=== PATIENT | female | born 2005 | race Two or more races ===

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

== ENCOUNTER 2025-02-26 14:21 | Outpatient (REF) | payer MEDICAID, SELFPAY ==
--- OUTSIDE RECORDS SUMMARY | 2025-02-26 14:43 | XMS_ITS | Encounter Summary ---
Author Organization [facility] Address [address] [place] [address] [address] [place] [address] Care Team Providers Care Assembler Knife Name Role Phone Alma Donaldson NP Primary Care Provider Reason for Referral * Imaging (Urgent) - Pending Review Specialty Diagnoses / Procedures Referred By Contac t Referred To Contact Radiology Diagnoses Left lower quadrant pain Procedures US Pelvis Transvaginal Alma Donaldson NP [address] [place] [address] Phone: tel: fax: Referral ID Status Reason Start Date Expiration Date V isits Requested Visits Authorized [id number] Pending Review 02/26/2025 02/26/2026 1 1 * Imaging (Routine) - Pending Review Specialty Diagnoses / Procedures Referred By Contac t Referred To Contact Radiology Diagnoses Left lower quadrant pain Procedures Us Pelvis complete Alma Donaldson NP [address] [place] [address] Phone: tel: fax: Referral ID Status Reason Start Date Expiration Date V isits Requested Visits Authorized [id number] Pending Review 02/26/2025 02/26/2026 1 1 Encounter Details Date Type Department Care Team (Late st Contact Info) Description 02/26/2025 2:00 PM EDT Office Visit [facility] [address] [place] [address] Alma Donaldson NP [address] [place] [address] Nausea (Primary Dx); Left lower quadrant pain; Migraine without status migrainosus, not intractable, unspecified migraine type; Migraine with aura and without status migrainosus, not intractable Social History Tobacco Use Types Packs/Day Years Used Date Smoking Tobacco: Never Alcohol Use Standard Drinks/Week Comments Never 0 (1 standard drink = 0.6 oz pur e alcohol) Alcohol Answer Date Recorded Frequency of Alcohol Consumption Not on file 05/22/2024 Average Number of Drinks Not on file 024 Frequency of Binge Drinking Not on file 03/2024 Score 0 05/22/2024 Depression Answer Date Recorded Patient Health Questionnaire-9 Score 18 05/22/2024 Patient Health Questionnaire-9 Score 18 05/22/2024 Last PHQ-9: Questionnaire Data Not on file 0 05/22/2024 Housing Stability Answer Date Recorded What is your housing situation today? I do not have housing (Staying with others, in a hotel, in a assisted, living outside on the street, on a beach, in a car, or in a park 04/03/[address] you li ve. Do you have problems with any of the following? Pests such as bugs, ants, or mice;Water leaks 04/03/2024 Food Insecurity Answer Date Recorded Within the past 12 months, y ou worried that your food would run out before you got money to buy more: Never True 2023 Within the past 12 months,th e food you bought just didn't last and you didn't have enough money to get more: Sometimes True 04/03/2024 Transportation Answer Date Recorded In the past 12 months, has l ack of transportation kept you from medical appts, meetings, work or from getting things needed for daily living? I am not sure 04/03/2024 Utilities Answer Date Recorded In the past 12 months, has t he electric, gas, oil or water company threatened to shut off services in your home? I am not sure 04/03/2024 Depression Answer Date Recorded Patient Health Questionnaire-2 Score 4 05/22/2024 Comments No Sex and Gender Information Value Date Recorded Sex Assigned at Female 09/17/2022 10:32 AM EDT Legal Sex Female 10:32 AM EDT Gender Identity Female 09/17/2022 10:32 AM EDT Sexual Orientation Straight 04/30/2024 1: 39 PM EDT documented as of this encounter Last Filed Vital Signs Vital Sign Reading Time Taken Comments Blood Pressure 126/80 02/26/2025 1:57 PM EDT Pulse 97 02/26/2025 1:57 PM EDT Temperature 35.6 ??C (96.1 ??F) 02/26/2025 1:57 PM ED T Respiratory Rate 18 02/26/2025 1:57 PM EDT Oxygen Saturation 97% 02/26/2025 1:57 PM EDT Inhaled Oxygen Concentration - - Weight 83.2 kg (183 lb 6.4 oz) 02/26/2025 1:57 P M EDT Height 157.5 cm (5' 2 ) 02/26/2025 1:57 PM EDT Body Mass Index 33.54 02/26/2025 1:57 PM EDT documented in this encounter Progress Notes * Alma Donaldson, AG - 02/26/2025 2:00 PM EDT Subjective: Jasper Weaver is a 19 y.o. female who presents to the office for a sick visit. HPI Left lower quadrant pain, hx of ovarian cyst Both sides of lower abdomen were hurting yesterday now localized to lower abdomen Has a migraine currently, 2 days. Lmp- 02/13-02/17/25 no sexual activity since then Hx of constipation, does have miralax, but has not been taking last bm 2 days ago, is passing gas Does endorse cannibus usage , has never had this before from cannabis Patient Active Problem List Diagnosis Attention deficit hyperactivity disorder Chronic left-sided low back pain without sciatica Anxiety and depression Fibrous dysplasia of bone Mild intermittent asthma Acute left-sided thoracic back pain Non-seasonal allergic rhinitis Healthcare maintenance Allergies Anemia Fatigue due to exposure Dysmenorrhea Ingrown toenail of left foot Anxiety Panic attacks Abnormal x-ray Unprotected sex Lower abdominal pain Irritable bowel syndrome with both constipation and diarrhea Depressive disorder Nausea Exposure to communicable disease Unintentional weight loss COVID-19 Left lower quadrant pain Migraine with aura and without status migrainosus, not intractable Review of Systems Constitutional: Negative for activity change and appetite change. Respiratory: Negative for apnea and chest tightness. Cardiovascular: Negative for chest pain. Gastrointestinal: Positive for abdominal pain, constipation and nausea. Negative for vomiting. Genitourinary: Positive for pelvic pain. Negative for decreased urine volume, hematuria, vaginal bleeding and vaginal discharge. Neurological: Positive for headaches. Allergies Allergen Reactions Amoxicillin Hives Objective: Visit Vitals BP 126/80 (BP Location: Right arm, Patient Position: Sitting, BP Cuff Size: Adult) Pulse 97 Temp 96.1 ??F (35.6 ??C) (Temporal) Resp 18 Ht 5' 2 (1.575 m) Wt 183 lb 6.4 oz (83.2 kg) SpO2 97% BMI 33.54 kg/m?? OB Status Having periods Smoking Status Never BSA 1.91 m?? Physical Exam Constitutional: Appearance: She is obese. Cardiovascular: Rate and Rhythm: Regular rhythm. Heart sounds: Normal heart sounds. Pulmonary: Breath sounds: Normal breath sounds. Abdominal: Palpations: Abdomen is soft. There is no mass. Tenderness: There is abdominal tenderness. There is no guarding or rebound. Musculoskeletal: Cervical back: Neck supple. Neurological: Mental Status: She is alert. Assessment/Plan: Problem List Items Addressed This Visit Nausea - Primary Left lower quadrant pain Current Assessment & Plan Pt with left lower qudarant pain, Reassuring abdominal exam no rebound or guarding but does have some tenderness Baseline constipation, Encouraged miralax Beta hcg ordered (pt cannot provide urine) Ultrasound ordered for possible ovarian cyst, Pt and mother aware of second hand services and urgency of seeking care should pain increase Relevant Orders Us Pelvis complete US Pelvis Transvaginal hCG, Total, Quantitative Migraine with aura and without status migrainosus, not intractable Current Assessment & Plan Trial excedrin, pt endorses light sensitivity Relevant Medications ucvqnxa-eduiwghntsaec-eiypdxiy (Excedrin Migraine) 250-250-65 MG tablet Current Outpatient Medications Medication Sig Dispense Refill acetaminophen (Tylenol) 500 MG tablet Take 1 tablet (500 mg) by mouth every 6 (six) hours if neededfor mild pain. 60 tablet 0 albuterol (ProAir HFA) 108 (90 Base) MCG/ACT inhaler Inhale 2 puffs every 4 (four) hours if needed for wheezing. 18 g 2 aknrrqt-xyrgzfltmsgay-kxjzeamk (Excedrin Migraine) 250-250-65 MG tablet Take 1 tablet by mouth every 8 (eight) hours if needed for headaches for up to 2 days. 6 tablet 0 benzoyl peroxide (Benzac AC) 10 % external wash wash face with cleanser during showers cetirizine (ZyrTEC) 10 MG tablet Take 1 tablet (10 mg) by mouth Once per day. 30 tablet 2 famotidine (Pepcid) 20 MG tablet TAKE 1 TABLET BY MOUTH TWICE A DAY 180 tablet 0 fluticasone (Flonase) 50 MCG/ACT nasal spray ADMINISTER 1 SPRAY INTO EACH NOSTRIL ONCE PER DAY. SHAKE GENTLY. BEFORE FIRST USE, PRIME PUMP. AFTER USE, CLEAN TIP AND REPLACE CAP. 32 mL 1 Multiple Vitamin (multivitamin) tablet 1 tab daily (Patient not taking: Reported on 05/29/2024) 90 tablet 3 omeprazole OTC (PriLOSEC OTC) 20 MG EC tablet 1 tab every morning till pain resolved, then prn. . Do not crush, chew, or split. (Patient not taking: Reported on 05/29/2024) 90 tablet 0 traZODone (Desyrel) 100 MG tablet Take by mouth at bedtime. No current facility-administered medications for this visit. documented in this encounter Miscellaneous Notes * Assessment & Plan Note - Alma Donaldson NP - 02/26/2025 2:23 PM EDTAssociated Problem(s): Migraine with aura and without status migrainosus, not intractable Trial excedrin, pt endorses light sensitivity * Assessment & Plan Note - Alma Donaldson NP - 02/26/2025 2:19 PM EDTAssociated Problem(s): Left lower quadrant pain Pt with left lower qudarant pain, Reassuring abdominal exam no rebound or guarding but does have some tenderness Baseline constipation, Encouraged miralax Beta hcg ordered (pt cannot provide urine) Ultrasound ordered for possible ovarian cyst, Pt and mother aware of second hand services and urgency of seeking care should pain increase documented in this encounter Plan of Treatment Upcoming Encounters Date Type Department Care Team (Late st Contact Info) Description 03/23/2025 11:30 AM EDT Office Visit [facility] [address] [place] [address] Alma Donaldson NP [address] [place] [address] Scheduled Orders Name Type Priority Associated Diagnoses Orde r Schedule Us Pelvis complete Imaging Routine Left lower quadrant pain Expected: 02/26/2025, Expires: 02/26/2026 US Pelvis Transvaginal Imaging Urgent Left lower quadrant pain Expected: 02/26/2025, Expires: 02/26/2026 hCG, Total, Quantitative Lab Routine Left lower quadrant pain Expected: 02/26/2025 (Approximate), Expires: 02/26/2026 documented as of this encounter Visit Diagnoses Diagnosis Nausea- Primary Nausea alone Left lower quadrant pain Abdominal pain, left lower quadrant Migraine without status migrainosus, not intractable, unspecified migraine type Migraine with aura and without status migrainosus, not intractable documented in this encounter Additional Health Concerns Assessment Noted Time PHQ-9 Depression Total Score: 18 024 10:42 AM EDT documented as of this encounter Care Teams Assembler Knife Relationship Specialty Start Date End Date Alma Donaldson NP [address] [place] [address] PCP - General Family Medicine 02/27/24 documented as of this encounter
--- OUTSIDE RECORDS SUMMARY | 2025-02-26 14:43 | XMS_ITS ---
Author Organization [facility] Address [address] [place], [place] [id number] Care Team Providers Care Slat Twister Name Role Phone [facility] Primary Care Provider Un available Dixie Ellsworth Unavailable REASON FOR VISIT Housing Encounters Encounter Location Date Provider Diagnosis [facility] [address] [place] [phone] 11/09/2024 Dixie Ellsworth Plan Of Treatment No Information Progress Notes * Jasper SUN DDOB:07/2006 (19 yo F)Acc No.[id number]:11/09/2024 Case Management Patient:?Jasper SUN Provider:?Dixie Ellsworth :2005???Age:18 Y???Sex:Female D ate:11/09/2024 Address:[address] [place] [address] [place], [place] [phone] Pcp:[facility] Subjective: * Chief Complaints: * ???1. Housing. * Medical History:? Objective: Assessment: Plan: * Treatment: * Images: Billing Information: * Visit Code:? * Procedure Codes:? Care Plan Details* * Electronic signature of Hiren Ellsworth on 02/26/2025 at 02:43 PM EDT Sign off status: Pending * Provider:Kerri Ellsworth Date:? Generated for Hay collins/Concepcion/eTransmitting on:?02/26/2025 02:43 PM EDT
--- OUTSIDE RECORDS SUMMARY | 2025-02-26 14:43 | XMS_ITS ---
Author Name [facility] Organization Unknown History of Medication Use Medication Directions Dispensed Refills Start Date End Date Stat us famotidine (PEPCID) 10 MG tablet Take by mouth daily act tia Problems Problem Status Onset Date Problem Type Date of Resolution Source Epigastric pain active EncounterDiagnosisAct [facility] Constipation, unspecified constipation type active EncounterDiagnosisAct C [facility] Encounters Encounter Type Encounter Reason Primary Diagnosis Location Date Ambulatory [facility] 06/04/2022 Care Team Organization Name Specialty Phone Email Start Date End Da te [facility] Hailey Molina Primary Care 06/04/2022
--- OUTSIDE RECORDS SUMMARY | 2025-02-26 14:44 | XMS_ITS ---
Author Organization [facility] Address [address], [place] [id number] Care Team Providers Care Utility Bill Collection Clerk Name Role Phone [facility] Primary Care Provider Un available Dixie Ellsworth Unavailable REASON FOR VISIT make appt Encounters Encounter Location Date Provider Diagnosis [facility] [address] [place] [phone] 12/08/2024 Dixie Ellsworth Plan Of Treatment No Information Progress Notes * Jasper SUN DDOB:07/2006 (18 yo F)Acc No.[id number]:12/08/2024 Case Management Patient:?Jasper SUN Provider:?Dixie Ellsworth :2005???Age:18 Y???Sex:Female D ate:12/08/2024 Address:[address] [place], [place] [phone] Pcp:[facility] Subjective: * Chief Complaints: * ???1. Make appt. * HPI: ???Social Service:?Date of encounter?12/08/2024.?Referral Source?walk-in, self.?Interpretation for medical provider?Make Appt.?Advocacy?none.?Follow-up Required:?yes.?Pt comprehension?Pt agrees with plan, Patient understood process and assisted with process.?Action taken (old)?form completion, Items given to client, item obtained, Letter given to patient after photo copy made.? * Medical History:? Objective: * Vitals:? Assessment: Plan: * Treatment: * Images: Billing Information: * Visit Code:? * Procedure Codes:? Care Plan Details* * Sign off status: Completed true * Provider:?Dixie Ellsworth Date:? Generated for Hay collins/Concepcion/Brandysmloida on:?02/26/2025 02:43 PM EDT History and Physical Notes * HPI (History of Present Illness) Category Sub-Category Detail Notes Social Service Referral Source walk-in, self Interpretation for medical provider Make Appt Action taken (old) form completion, Ite ms given to client, item obtained, Letter given to patient after photo copy made Advocacy none Follow-up Required: yes Pt comprehension Pt agrees with plan, Patient understood process and assisted with process Date of encounter 12/08/2024
--- OUTSIDE RECORDS SUMMARY | 2025-02-26 14:44 | XMS_ITS | Clinical Summary ---
Author Organization [facility] Address [address] [place] [address] Care Team Providers Care Corrections Caseworker Name Role Phone Hailey Molina MD Primary Care Provider [phone] Source Comments Please note that some or all of the patient's information could have additional privacy protections. State laws allow health care providers to render certain types of treatment to minors without parental consent. Please do not assume that this information can be shared solely by obtaining just the consent of the patient's parent/guardian. Please determine if all or part of the patient's care was rendered without parent/guardian involvement. And, if so, obtain the minor's consent prior to disclosure.[facility]'s Allergies Active Allergy Reactions Criticality Noted Date Comments Amoxicillin 06/04/2022 Medications famotidine (PEPCID) 10 MG tablet Take by mouth daily Active cloNIDine HCL (CATAPRES) 0.3 MG tablet Take by mouth 2 (two) times daily Active traZODone (DESYREL) 100 MG tablet Take by mouth nightly Active polyethylene glycol (MIRALAX) 17 gram/dose powderIndications :Constipation, unspecified constipation type Mix 16 capfuls in 64 oz gatorade drink over 4 to 6 hours followed by 1 capful twice daily 595 g 3 2 Active Active Problems No known active problems Family History Medical History Relation Name Comments No Known Problems Father No Known Problems Mother Relation Name Status Comments Father Mother Social History Tobacco Use Types Packs/Day Years Used Date Smoking Tobacco: Never Smokeless Tobacco: Never Other Needs Answer Date Recorded Anything else about your child you'd like help w ith? Not on file 08/02/2023 Share good news about positive changes: Not on f ile 08/02/2023 Comments No Sex and Gender Information Value Date Recorded Sex Assigned at Not on file Legal Sex Female 9:55 AM EDT Gender Identity Not on file Sexual Orientation Not on file Last Filed Vital Signs Vital Sign Reading Time Taken Comments Blood Pressure 106/69 06/04/2022 9:37 AM EDT Pulse 89 06/04/2022 9:37 AM EDT Temperature - - Respiratory Rate - - Oxygen Saturation - - Inhaled Oxygen Concentration - - Weight 79.7 kg (175 lb 11.3 oz) 06/04/2022 9:37 AM EDT Height 157.2 cm (5' 1.89 ) 06/04/2022 9:37 AM ED T Body Mass Index 32.25 06/04/2022 9:37 AM EDT Body Mass Index Percentile 96.77% 06/04/2022 9:3 7 AM EDT Growth Chart: CDC (Girls, 2- 20 Years) Plan of Treatment Health Maintenance Due Date Last Done Comments DTaP/TDAP/TD VACCINES (1 - Tdap) 2012 ADOLESCENT HIV SCREENING 2018 COVID-19 Vaccine (2023-2 5 season) 2024 INFLUENZA (#1) 2024 NIRSEVIMAB VACCINES UNDER 8 MONTHS Aged Out No longer eligible based on patient's age to complete this topic Insurance [facility] MEDICAID Care Teams Corrections Caseworker Relationship Specialty Start Date End Date Hailey Molina MD [address] [place] [phone] PCP - General General Pediatrics 04/17/22
--- OUTSIDE RECORDS SUMMARY | 2025-02-26 14:44 | XMS_ITS | Encounter Summary ---
Author Organization [employer] Address [address] [place] [address] [address] [place] [address] Care Team Providers Care Core Microarchitect Name Role Phone Alma Donaldson NP Primary Care Provider [phone] Encounter Details Date Type Department Care Team (Late st Contact Info) Description 04/10/2024 Orders Only [facility] [address] [place] [address] Ivet Li MD [address] [place] [address] Community acquired pneumonia, unspecified laterality (Primary Dx) Social History Tobacco Use Types Packs/Day Years Used Date Smoking Tobacco: Never Alcohol Use Standard Drinks/Week Comments Never 0 (1 standard drink = 0.6 oz pur e alcohol) Depression Answer Date Recorded Patient Health Questionnaire-9 Score 21 04/03/2024 Patient Health Questionnaire-9 Score 21 04/03/2024 Last PHQ-9: Questionnaire Data Not on file 0 04/03/2024 Housing Stability Answer Date Recorded What is your housing situation today? I do not have housing (Staying with others, in a hotel, in a custodial, living outside on the street, on a [...] Answer Date Recorded Patient Health Questionnaire-2 Score 5 04/03/2024 Comments Unknown Sex and Gender Information Value Date Recorded Sex Assigned at Female 09/17/2022 10:32 AM EDT Legal Sex Female 10:32 AM EDT Gender Identity Female 09/17/2022 10:32 AM EDT Sexual Orientation Straight 04/30/2024 1: 39 PM EDT documented as of this encounter Plan of Treatment Upcoming Encounters Date Type Department Care Team (Late st Contact Info) Description 03/23/2025 11:30 AM EDT Office Visit [facility] [address] [place], [place] [phone] Alma Donaldson NP [address] [place] [phone] documented as of this encounter Procedures Procedure Name Priority Date/Time Associated Diagnosis Comments URINALYSIS, COMPLETE, WITH REFLEX TO CULTURE Routine 09/03/2024 2:51 AM EDT Community acquired pneumonia, unspecified laterality CBC WITH AUTO DIFFERENTIAL Routine 09/03/2024 12:43 AM EDT Community acquired pneumonia, unspecified laterality HCG, TOTAL, QN Routine 09/03/2024 12:43 AM EDT Community acquired pneumonia, unspecified laterality COMPREHENSIVE METABOLIC PANEL Routine 09/03/2024 12:43 AM EDT Community acquired pneumonia, unspecified laterality documented in this encounter Results * Urinalysis, Complete, with Reflex to Culture (09/03/2024 2:51 AM EDT) Color Urine Yellow [facility] Appearance Urine Clear [facility] PH 6.5 5.0 - 9.0 [facility] Glucose Urine UA Negative Negative mg/dL [facility] Urine Blood Negative Negative [facility] Specific [place] - Urine <=1.005 1.005 - 1.025 [facility] Urine Protein Negative Neg-Trace mg/dL [facility] Urine Ketones Negative Negative mg/dL [facility] Nitrite Urine Negative Negative [facility] Leukocyte Esterase Urine Negative Negative [facility] RBC Urine 0-2 0 - 2 /HPF [facility] Urine WBC 0-5 0 - 5 /HPF [facility] Urine Squamous Epithelial Cell 0-2 0 - 2 /HPF [facility] Urine Bacteria None Seen None Seen [facility] Hyaline Casts, Urine 0-2 0 - 2 /LPF [facility] 09/03/2024 2:51 AM EDT 09/03/2024 2:55 AM EDT Narrative [facility] - 09/03/2024 3:01 AM EDT Urine, Clean Catch us Generic External Data Provider LAB URINE ORDERAB LES Final Result Performing Organization Address City/State/[facility] Co de Phone Number [facility] [address] [place] [phone] * hCG, Total, Quantitative (09/03/2024 12:43 AM EDT) HCG Quantitative <2 mIU/mL [facility] Comment:Weeks post LMP Appro ximate hCG(Last Menstrual Period) Range (mIU/ml)3 - 4 weeks 9 - 1304 - 5 weeks 75 - 2,6005 - 6 weeks 850 - 20,8006 - 7 weeks 4000 - 100,2007 - 12 weeks 11,500 - 289,83913 - 16 weeks 18,300 - 137,71582 - 29 weeks (2nd trimester) 1,400 - 53,90278 - 41 weeks (3rd trimester) 940 - 60,000The [place]ribe B- hCG assay is used for the early detection ofpregnancy; it cannot be used to diagnose any conditionunrelated to . If a B-hCG level is not supportedby the clinical evidence, results should be confirmed by analternative method (qualitative urine hCG, for example). 09/03/2024 12:4 3 AM EDT 09/03/2024 12:45 AM EDT us Generic External Data Provider LAB BLOOD ORDERAB LES Final Result [facility] [address] [place] [phone] * (ABNORMAL) Comprehensive Metabolic Panel (09/03/2024 12:43 AM EDT) Sodium 139 135 - 145 mmol/L [facility] Potassium 3.8 3.3 - 5.1 mmol/L [facility] Chloride 107 96 - 108 mmol/L [facility] Carbon Dioxide 25 22 - 29 mmol/L [facility] Anion Gap 11(L) 12 - 20 [facility] Urea Nitrogen (BUN) 12 9 - 16 mg/dL [facility] Creatinine, Serum 0.72 0.5 - 1.4 mg/dL [facility] Creatinine Clr Calc Pharmacy TNP [facility] Comment:Cannot be calculated ; patient is less than 19 years old. Estimated Glomerular Filt Rate >60 [facility] Comment:NOTE: For -Am erican individuals, multiply the result by 1.210.Chronic Kidney Disease: Estimated GFR < 60 mL/min/[id number] Kidney Disease: Estimated GFR < 15 mL/min/1.73m2 Glucose 89 60 - 115 mg/dL [facility] Calcium 9.8 8.4 - 10.2 mg/dL [facility] Bilirubin, Total 0.3 0.0 - 1.0 mg/dL [facility] Aspartate Amino Transferase 16 5 - 31 U/L [facility] Alanine Aminotransferase 13 0 - 31 U/L [facility] Total Protein 7.5 6.5 - 8.0 g/dL [facility] Albumin Level 4.5 3.5 - 5.0 g/dL [facility] Alkaline Phosphatase 92 39 - 117 U/L [facility] 09/03/2024 12:4 3 AM EDT 09/03/2024 12:45 AM EDT us Generic External Data Provider LAB BLOOD ORDERAB LES Final Result [facility] [address] [place] [phone] * (ABNORMAL) CBC auto differential (09/03/2024 12:43 AM EDT) White Blood Count 9.7 4.8 - 10.8 X10*3/uL [facility] Red Blood Count 4.40 4.20 - 5.50 X10*6/uL [facility] Hemoglobin 13.3 12.0 - 16.0 g/dl [facility] Hematocrit 38.4 37.0 - 47.0 % [facility] Mean Corpuscular Volume 87.3 80.0 - 98.0 fL [facility] Mean Corpuscular Hemoglobin 30.2 27.0 - 33.0 pg [facility] Mean Corpuscular HGB Conc 34.6 31.0 - 35.0 g/dl [facility] Red Cell Distribution Width 12.5 11.0 - 16.0 % [facility] Platelet Count 377 160 - 400 X10*3/uL [facility] Mean Platelet Volume 8.9(L) 9.4 - 12.3 fL [facility] Neutrophils Percent Auto 54.7 45 - 73 % [facility] Imm Gran Pct Auto 0.4 0.0 - 0.4 % [facility] Lymphocytes Percent Auto 36.7 20 - 40 % [facility] Monocytes Percent Auto 5.8 2 - 11 % [facility] Eosinophils Percent Auto 2.0 0 - 4 % [facility] Basophils Percent Auto 0.4 0 - 2 % [facility] NRBC Pct Auto 0.0 0.0 - 0.2 /100WBC [facility] Neutrophils Absolute Auto 5.3 2.0 - 8.3 x10*3/uL [facility] Imm Gran Abs Auto 0.04(H) 0.00 - 0.03 X10*3/uL [facility] Lymphocytes Absolute Auto 3.6 1.2 - 4.9 X10*3/uL [facility] Monocytes Absolute Auto 0.6 0.1 - 1.2 X10*3/uL [facility] Eosinophils Absolute Auto 0.2 0.0 - 0.4 X10*3/uL [facility] Basophils Absolute Auto 0.0 0.0 - 0.2 X10*3/uL [facility] NRBC Abs Auto 0.000 0.0 - 0.012 X10*3/uL [facility] 09/03/2024 12:4 3 AM EDT 09/03/2024 12:45 AM EDT us Generic External Data Provider LAB BLOOD ORDERAB LES Final Result [facility] [address] [place] [phone] documented in this encounter Visit Diagnoses Diagnosis Community acquired pneumonia, unspecified laterality- Primary documented in this encounter Additional Health Concerns Assessment Noted Time PHQ-9 Depression Total Score: 21 024 9:17 AM EDT documented as of this encounter Care Teams Core Microarchitect Relationship Specialty Start Date End Date Alma Donaldson NP [address] [place] [address] PCP - General Family Medicine 02/27/24 documented as of this encounter
--- OUTSIDE RECORDS SUMMARY | 2025-02-26 14:44 | XMS_ITS ---
Author Organization [facility] Address [address] [place], [place] [phone] Care Team Providers Care Supervisor Detasseling Crew Name Role Phone [facility] Primary Care Provider Un available Dixie Ellsworth Unavailable [phone] REASON FOR VISIT housing Encounters Encounter Location Date Provider Diagnosis [facility] [address] [place] [phone] 12/17/2024 Dixie Ellsworth Plan Of Treatment No Information Progress Notes * Jasper SUN DDOB:07/2006 (18 yo F)Acc No.[id number]:12/17/2024 Case Management Patient:?Jasper SUN Provider:?Dixie Ellsworth :2005???Age:18 Y???Sex:Female D ate:12/17/2024 Address:[address] [place] [address] [place], [place] [phone] Pcp[facility] Subjective: * Chief Complaints: * ???1. Housing. * HPI: ???Social Service:?Date of encounter?12/17/2024.?Referral Source?walk-in, self.?Interpretation for medical provider?housing.?Advocacy?none.?Follow-up Required:?yes.?Pt comprehension?Pt agrees with plan, Patient understood [...] * Provider:?Dixie Ellsworth Date:? Generated for Hay collins/Concepcion/Marce on:?02/26/2025 01:29 PM EDT History and Physical Notes * HPI (History of Present Illness) Category Sub-Category Detail Notes Social Service Referral Source walk-in, self Interpretation for medical provider hous ing Action taken (old) form completion, Ite ms given to client, item obtained, Letter given to patient after photo copy made Advocacy none Follow-up Required: yes Pt comprehension Pt agrees with plan, Patient understood process and assisted with process Date of encounter 12/17/2024
--- OUTSIDE RECORDS SUMMARY | 2025-02-26 14:44 | XMS_ITS | Clinical Summary ---
Author Organization [employer] Address [address] [place] [address] Care Team Providers Care Resident Associate Name Role Phone Alma Donaldson NP Primary Care Provider [phone] Allergies Active Allergy Reactions Criticality Noted Date Comments Amoxicillin Hives 08/30/2017 Medications * This document contains information received from the source organization and may not represent a complete record from that organization. benzoyl peroxide (Benzac AC) 10 % external wash wash face with cleanser during showers 05/17/20 22 Active traZODone (Desyrel) 100 MG tablet Take by mouth at bedtime. Active cetirizine (ZyrTEC) 10 MG tabletIndicatio ns:Allergy, initial encounter Take 1 tablet (10 mg) by mouth Once per day. 30 tablet 2 04/10/20 24 Active omeprazole OTC (PriLOSEC OTC) 20 MG EC tabletIndicatio ns:Epigastric abdominal pain 1 tab every morning till pain resolved, then prn. . Do not crush, chew, or split. 90 tablet 04/14/20 24 Active Additional Information Patient not taking.Reported on 05/29/2024 Multiple Vitamin (multivitamin) tabletIndicatio ns:Acute cough 1 tab daily 90 tablet 3 04/14/20 24 Active Additional Information Patient not taking.Reported on 05/29/2024 acetaminophen (Tylenol) 500 MG tablet Take 1 tablet (500 mg) by mouth every 6 (six) hours if needed for mild pain. 60 tablet 11/09/20 24 Active albuterol (ProAir HFA) 108 (90 Base) MCG/ACT inhalerIndicati ons:Mild intermittent asthma with acute exacerbation Inhale 2 puffs every 4 (four) hours if needed for wheezing. 18 g 2 11/09/20 24 Active famotidine (Pepcid) 20 MG tabletIndicatio ns:Nausea TAKE 1 TABLET BY MOUTH TWICE A DAY 180 tablet 11/30/19 25 Active fluticasone (Flonase) 50 MCG/ACT nasal sprayIndication s:COVID-19 ADMINISTER 1 SPRAY INTO EACH NOSTRIL ONCE PER DAY. SHAKE GENTLY. BEFORE FIRST USE, PRIME PUMP. AFTER USE, CLEAN TIP AND REPLACE CAP. 32 mL 1 02/05/20 25 026 Active aspirin-acetami nophen-caffeine (Excedrin Migraine) 250-250-65 MG tabletIndicatio ns:Migraine without status migrainosus, not intractable, unspecified migraine type Take 1 tablet by mouth every 8 (eight) hours if needed for headaches for up to 2 days. 6 tablet 02/27/20 25 025 Active fluticasone (Flonase) 50 MCG/ACT nasal sprayIndication s:COVID-19 Administer 1 spray into each nostril Once per day. Shake gently. Before first use, prime pump. After use, clean tip and replace cap. 16 g 2 11/09/20 24 025 Discontinued Active Problems Problem Noted Date Diagnosed Date Left lower quadrant pain 02/26/2025 Assessment & Plan (02/26/2025 2:19 PM EDT): Pt with left lower qudarant pain, Reassuring abdominal exam no rebound or guarding but does have some tenderness Baseline constipation, Encouraged miralax Beta hcg ordered (pt cannot provide urine) Ultrasound ordered for possible ovarian cyst, Pt and mother aware of chief telephone operator services and urgency of seeking care should pain increase Migraine with aura and witho ut status migrainosus, not intractable 02/26/2025 Assessment & Plan (02/26/2025 2:23 PM EDT): Trial sebdrin, pt endorses light sensitivity COVID-19 11/09/2024 Assessment & Plan (11/09/2024 4:09 PM EST): Rx Paxlovid x 5 days, [place] interactions module checked, no significant interactions found. Isolation until 11/11 and she/he will be out of work until then. Can be out of isolation, wearing a mask from 11/12 until 11/16, if sxs are resolved without other meds for at least 24h. Counseled to let close contacts within the past week, know about dx so they can be tested if needed. Rest (sleep at least 8 hours a night). Wash hands frequently Hydrate with plenty of water. Use saline nose drops Take Acetaminophen or Ibuprofen as Prn fever or discomfort Gargle with salt water and use throat sprays/lozenges prn Use heated, humidified air or take hot showers. If you have a fever, stay home and away from others (self isolation) until fever-free for 72 hours (temperature should be less than 100??F without medication). Nausea 09/01/2024 Assessment & Plan (09/01/2024 5:24 PM EDT): H pylori test ordered Will treat with famotidine and prn zofran, encouraged eating q 2-3 hours Exposure to communicable disease 09/01/2024 Assessment & Plan (09/01/2024 5:25 PM EDT): [employer]spot required for employment Unintentional weight loss 09/01/2024 Assessment & Plan (09/01/2024 5:25 PM EDT): Repeat tsh Irritable bowel syndrome wit h both constipation and diarrhea 07/15/2024 Assessment & Plan (07/15/2024 4:37 PM EDT): Reviewed fodmaps trial, referral to nutrition, if no response, referral to GI Abnormal x-ray 05/22/2024 Assessment & Plan (05/22/2024 12:59 PM EDT): Previous x-ray 03/19/24 Density seen anterior lower lung zone on lateral study may well represent an area of atelectasis or infiltrate. Attention to follow-up. Follow-up recommended after treatment to assess for resolution and establish baseline Repeat film ordered today Advised to trial albuterol inhaler for sensation of chest tightness Unprotected sex 05/22/2024 Assessment & Plan (05/22/2024 1:00 PM EDT): Contraception offered, pt declines, aware of plan b, gc/chl and test ordered today Lower abdominal pain 05/22/2024 Assessment & Plan (05/22/2024 1:03 PM EDT): Reassuring abdominal exam, encouraged fiber and hydration, if pain persists or worsens imaging warranted Healthcare maintenance 04/10/2024 Assessment & Plan (04/30/2024 3:20 PM EDT): Anticipatory guidance reviewed, sti screening ordered, Allergies 04/10/2024 Assessment & Plan (04/30/2024 3:21 PM EDT): Seasonal allergies topical nasal steroid and antihistamine rx Anemia 04/10/2024 Assessment & Plan (04/30/2024 3:20 PM EDT): Asymptomatic, trend labs Fatigue due to exposure 04/10/2024 Dysmenorrhea 04/10/2024 Assessment & Plan (09/01/2024 5:23 PM EDT): Pt interested in second opinion regarding etiology, Referral to [facility] at [facility], Ultrasound ordered as pt endorses sig llq pain Assessment & Plan (07/15/2024 4:38 PM EDT): Pt declines treatment options, will support with work note if dysmenorrhea is severe causing missed days Assessment & Plan (06/18/2024 12:43 PM EDT): -most recent pelvic US noted above -advised trial of ibuprofen 800 mg TID starting 2 days before onset of menses and continued for duration of menses -advised increased hydration and adequate food consumption -consider work up for PCOS as potential cause of symptoms -may benefit from contraception method for menstrual flow regulation -follow-up in 1 month at the completion of menses Assessment & Plan (05/22/2024 1:01 PM EDT): Found rx for ibuprofen beneficial hormonal options offered pt declines, gas plant specialist referral pending Assessment & Plan (04/30/2024 3:20 PM EDT): Pt opts to trial ibuprofen, referral to gas plant specialist for further work up /management per pt request Ingrown toenail of left foot 04/10/2024 Assessment & Plan (04/30/2024 3:20 PM EDT): Referral to podiatry Anxiety 04/10/2024 Assessment & Plan (05/25/2024 9:43 AM EDT): During [facility] Consult Jasper presenting with excessive worry/anxiety, difficulty controlling worry, restless/keyed up/On edge, easily fatigued, irritability, and sleep disturbance difficulty falling asleep and palpitations, sweating, sensation of shortness of breath/smothering, feeling of choking, Chest pain/discomfort, nausea/abdominal distress, dizzy/unsteady/light-headed/faint, Persistent concern/worry of panic attacks or their consequences; for a period of 6-12 mo, for all symptoms in the context of family issues, financial concern, and recent move. Jasper moved to [place] from [place] on 12/2023. She's currently living with her mom and identifies her housing and financial situation as triggers for sxs. Used to see a therapist and psychiatrist in [place]. Aware of importance of utilizing grounding techniques. During today's consult, Jasper was engaged with active and reflective listening. Reviewed and assessed risks, current triggers, protective factors using open-ended questions. We explored different grounding techniques that might be important to utilize when symptoms arise. Jasper will continue to see her therapist at [facility] and request to talk with clinician if needed during next medical visits. PLAN: (check all that apply) Continue with current services (defined as services in the past 12 months) . Pt reached out to [facility] / [facility] and has started OP individual therapy. Pt reports she has completed her second session with [facility]. Not interested in starting medication at the moment. Will continue to see therapist at [facility] and request to see clinician if needed during next medical visits. Assessment & Plan (05/22/2024 1:00 PM EDT): Pt continues to endorse anxiety, has established with therapy, ibh into assess today, SSRIs offered but pt declines at this time, aware of resources s/s to report sooner than scheduled follow up Assessment & Plan (04/17/2024 10:12 AM EDT): During [facility] Consult Jasper presenting with depressed mood, loss of interests/pleasure , psychomotor retardation, trouble concentrating, thoughts of worthlessness or guilt, fatigue/loss of energy, inappropriate guilt , hopelessness, worthlessness , difficulty concentrating, excessive worry/anxiety, difficulty controlling worry, restless/keyed up/On edge, easily fatigued, difficulty concentrating/Mind going blank , and irritability, and palpitations, sensation of shortness of breath/smothering, Chest pain/discomfort, nausea/abdominal distress, dizzy/unsteady/light- headed/faint, numbness/tingling, Persistent concern/worry of panic attacks or their consequences; for a period of 6-12 mo, for all symptoms in the context of family issues, financial concern, and recent move. Jasper moved to [place] from [place] on 12/2023. She's currently living with her mom and identifies her housing situation as a trigger for sxs. Used to see a therapist and psychiatrist in [place]. Aware of importance of utilizing grounding techniques and open to re-start medication to treat anxiety. PLAN: (check all that apply) Behavioral Health Integration Plan Self-referred to [facility] per patient's preferences. Information provided for N and [facility] intake. Panic attacks 04/10/2024 Assessment & Plan (05/25/2024 9:43 AM EDT): During [facility] Consult Jasper presenting with excessive worry/anxiety, difficulty controlling worry, restless/keyed up/On edge, easily fatigued, irritability, and sleep disturbance difficulty falling asleep and palpitations, sweating, sensation of shortness of breath/smothering, feeling of choking, Chest pain/discomfort, nausea/abdominal distress, dizzy/unsteady/light-headed/faint, Persistent concern/worry of panic attacks or their consequences; for a period of 6-12 mo, for all symptoms in the context of family issues, financial concern, and recent move. Jasper moved to [place] from [place] on 12/2023. She's currently living with her mom and identifies her housing and financial situation as triggers for sxs. Used to see a therapist and psychiatrist in [place]. Aware of importance of utilizing grounding techniques. During today's consult, Jasper was engaged with active and reflective listening. Reviewed and assessed risks, current triggers, protective factors using open-ended questions. We explored different grounding techniques that might be important to utilize when symptoms arise. Jasper will continue to see her therapist at [facility] and request to talk with clinician if needed during next medical visits. PLAN: (check all that apply) Continue with current services (defined as services in the past 12 months) . Pt reached out to [facility] / [facility] and has started OP individual therapy. Pt reports she has completed her second session with [facility]. Not interested in starting medication at the moment. Will continue to see therapist at [facility] and request to see clinician if needed during next medical visits. Assessment & Plan (04/17/2024 10:12 AM EDT): During [facility] Consult Jasper presenting with depressed mood, loss of interests/pleasure , psychomotor retardation, trouble concentrating, thoughts of worthlessness or guilt, fatigue/loss of energy, inappropriate guilt , hopelessness, worthlessness , difficulty concentrating, excessive worry/anxiety, difficulty controlling worry, restless/keyed up/On edge, easily fatigued, difficulty concentrating/Mind going blank , and irritability, and palpitations, sensation of shortness of breath/smothering, Chest pain/discomfort, nausea/abdominal distress, dizzy/unsteady/light- headed/faint, numbness/tingling, Persistent concern/worry of panic attacks or their consequences; for a period of 6-12 mo, for all symptoms in the context of family issues, financial concern, and recent move. Jasper moved to [place] from [place] on 12/2023. She's currently living with her mom and identifies her housing situation as a trigger for sxs. Used to see a therapist and psychiatrist in [place]. Aware of importance of utilizing grounding techniques and open to re-start medication to treat anxiety. PLAN: (check all that apply) Behavioral Health Integration Plan Self-referred to [facility] per patient's preferences. Information provided for [facility] and [facility] intake. Acute left-sided thoracic back pain 04/09/2024 Overview (04/09/2024): CXR r/o clavicle fx vs PNA (low on differential) supportive care return precautions f/u with PCP Non-seasonal allergic rhinitis 04/09/2024 Overview (04/09/2024): start cetirizine consider switching jobs f/u w/ PCP Chronic left-sided low back pain without sciatic a 01/27/2024 Anxiety and depression 09/04/2018 Assessment & Plan (06/18/2024 11:53 AM EDT): -moderate to severe anxiety and depression based on routine screening completed today. This could likely be due to her emotions surrounding her menstrual symptoms -Patient Health Questionnaire-9 Score: 18 (05/22/2024 10:42 AM) Patient Health Questionnaire-2 Score: 4 (05/22/2024 10:42 AM) -JOSIE-7 Total Score: 19 (05/22/2024 10:43 AM) -denies SI/HI at this time -advised on the benefits of engaging in gentle yoga practices, meditation, deep breathing and journaling along with physical activity to aid in symptom improvement -declined call from today, but will call the clinic with change of heart -follow-up 1 month with PCP Assessment & Plan (04/17/2024 10:12 AM EDT): During [facility] Consult Geralys presenting with depressed mood, loss of interests/pleasure , psychomotor retardation, trouble concentrating, thoughts of worthlessness or guilt, fatigue/loss of energy, inappropriate guilt , hopelessness, worthlessness , difficulty concentrating, excessive worry/anxiety, difficulty controlling worry, restless/keyed up/On edge, easily fatigued, difficulty concentrating/Mind going blank , and irritability, and palpitations, sensation of shortness of breath/smothering, Chest pain/discomfort, nausea/abdominal distress, dizzy/unsteady/light- headed/faint, numbness/tingling, Persistent concern/worry of panic attacks or their consequences; for a period of 6-12 mo, for all symptoms in the context of family issues, financial concern, and recent move. Jasper moved to [place] from [place] on 12/2023. She's currently living with her mom and identifies her housing situation as a trigger for sxs. Used to see a therapist and psychiatrist in [place]. Aware of importance of utilizing grounding techniques and open to re-start medication to treat anxiety. PLAN: (check all that apply) Behavioral Health Integration Plan Self-referred to [facility] per patient's preferences. Information provided for [facility] and [facility] intake. Depressive disorder 09/04/2018 Overview (08/28/2024): Last Assessment & Plan: During [facility] Consult Jasper presenting with depressed mood, loss of interests/pleasure , psychomotor retardation, trouble concentrating, thoughts of worthlessness or guilt, fatigue/loss of energy, inappropriate guilt , hopelessness, worthlessness , difficulty concentrating, excessive worry/anxiety, difficulty controlling worry, restless/keyed up/On edge, easily fatigued, difficulty concentrating/Mind going blank , and irritability, and palpitations, sensation of shortness of breath/smothering, Chest pain/discomfort, nausea/abdominal distress, dizzy/unsteady/light- headed/faint, numbness/tingling, Persistent concern/worry of panic attacks or their consequences; for a period of 6-12 mo, for all symptoms in the context of family issues, financial concern, and recent move. Jasper moved to [place] from [place] on 12/2023. She's currently living with her mom and identifies her housing situation as a trigger for sxs. Used to see a therapist and psychiatrist in [place]. Aware of importance of utilizing grounding techniques and open to re-start medication to treat anxiety. PLAN: (check all that apply) Behavioral Health Integration Plan Self-referred to [facility] per patient's preferences. Information provided for [facility] and [facility] intake. Attention deficit hyperactivity disorder 017 Fibrous dysplasia of bone 08/30/2017 Assessment & Plan (09/01/2024 5:24 PM EDT): Pt prefers to outreach to [facility] for ortho recommendations at this time, will update me once this is completed Assessment & Plan (05/22/2024 1:02 PM EDT): Pt endorses diffuse msk pain, is in care with [facility] and currently in PT, advised pt follow up with orho team, pt is comfortable with that plan, Assessment & Plan (04/10/2024 1:25 PM EDT): Monostotic, right femur, 2020, Mild intermittent asthma 08/30/2017 Assessment & Plan (11/09/2024 4:06 PM EST): Not an acute exacerbation. Advised to use albuterol tid and up to 4x/d prn sob/cough for the next 5d. Encounters Date Type Department Care Team Description 02/26/2025 2:00 PM EDT Office Visit [facility] [address] [place] [id number] Alma Donaldson NP Nausea (Primary Dx); Left lower quadrant pain; Migraine without status migrainosus, not intractable, unspecified migraine type; Migraine with aura and without status migrainosus, not intractable 02/04/2025 Refill [facility] [address] [place] [address] [phone] Venessa Waggoner MD COVID-19 11/29/2024 Refill [facility] [address] [place] [id number] Alma Donaldson NP Nausea from Last 3 Months Immunizations Name Administration Dates Next Due DTaP 01/13/2010, 7,07/08/2006,05/07,03/05/2006 HPV 9-Valent 05/02/2018,08/30/2017 Hep A, ped/adol, 2 dose 06/22/2007,01/02/2007 Hep B, Adolescent or Pediatric 07/08/2006,2005,2005 HiB, unspecified 04/09/2007,05/07/2006 Hib (PRP-T) 03/05/2006 IPV 01/13/2010, 6,05/07/2006,03/05 Influenza injectable quadriv alent preservative free 11/04/2020,08/05/2019,08/08/2018,10/02 Influenza, injectable, quadr ivalent, preservative free, pediatric 01/30/2007,01/02/2007 MMR 01/13/2010,01/02/2007 Meningococcal MCV4P [id number]-135 03/02/2022,08/30/20 17 Pneumococcal Conjugate PCV 13 04/09/2007 ,07/08/2006,05/07/2006,03/05 Tdap 08/30/2017 Varicella 01/13/2010,01/02/2007 Social History Tobacco Use Types Packs/Day Years Used Date Smoking Tobacco: Never Tobacco Cessation:Counseling Given: Not Answered Alcohol Use Standard Drinks/Week Comments Never 0 (1 standard drink = 0.6 oz pur e alcohol) Alcohol Answer Date Recorded Frequency of Alcohol Consumption Not on file 05/22/2024 Average Number of Drinks Not on file 024 Frequency of Binge Drinking Not on file 0703/2024 Score 0 05/22/2024 Depression Answer Date Recorded Patient Health Questionnaire-9 Score 18 05/22/2024 Patient Health Questionnaire-9 Score 18 05/22/2024 Last PHQ-9: Questionnaire Data Not on file 0 05/22/2024 Housing Stability Answer Date Recorded What is your housing situation today? I do not have housing (Staying with others, in a hotel, in a half-way, living outside on the street, on a [...] Orientation Straight 04/30/2024 1: 39 PM EDT Last Filed Vital Signs Vital Sign Reading [...] Mass Index 33.54 02/26/2025 1:57 PM EDT Plan of Treatment Upcoming Encounters Date Type Department Care Team (Late st Contact Info) Description 03/23/2025 11:30 AM EDT Office Visit [facility] [address] [place] [address] Alma Donaldson NP [address] [place] [address] Health Maintenance Due Date Last Done Comments Hepatitis A Vaccines (2 of 2 - 2-dose series) 12/23/2007 06/22/2007, 01/02/2007 Pneumococcal Vaccine: Pediatrics (0 to 5 Years) and At-Risk Patients (6 to 49) Years) (1 of 1 - PPSV23) 2011 04/09/2007, 07/08/2006, 05/07/2006, Additional history exists Family Planning (PISQ) 2020 Dental X-Ray: Full Mouth 08/29/2022 08/28/2019 COVID-19 Vaccine ( season) 2024 03/02/2022, 04/28/2021, 04/07/2021 Influenza Vaccine (#1) 2024 , 08/05/2019, 08/08/2018, Additional history exists Dental Oral Exam 10/09/2024 04/07/2024, 06/2022, 03/02/2021, Additional history exists Dental Prophylaxis 10/09/2024 04/07/2024, 0 05/25/2022, 03/02/2021, Additional history exists Depression Monitoring 11/22/2024 05/22/2024, 024 SDOH Screening 04/03/2025 04/03/2024 Dental X-Ray: Bitewings 04/08/2025 04/07/20 24, 05/25/2022, 03/02/2021, Additional history exists Alcohol/Substance Use Screening 05/22/2025 05/22/2024 Depression Screening 05/22/2025 05/22/2024, 05/22/20 24 Chlamydia and Gonorrhea Screening 10/12/2025 10/12/2024, 05/22/2024 Tobacco Screening 11/09/2025 11/09/2024 DTaP/Tdap/Td Vaccines (7 - Td or Tdap) 08/30/2027 08/30/2017, 01/13/2010, 04/09/2007, Additional history exists Zoster Vaccines (1 of 2) 2055 RSV Patients and Patients Aged 60 years or older (1 - 1-dose 75+ series) 2080 Hepatitis B Vaccines Completed 07/08/2006, 03/05/2006, 2005 HIB Vaccines Completed 04/09/2007, 04/19, 03/05/2006 IPV Vaccines Completed 01/13/2010, 06/19, 05/07/2006, Additional history exists MMR Vaccines Completed 01/13/2010, 01/02/2007 Varicella Vaccines Completed 01/13/2010, 01/02/2007 HPV Vaccines Completed 05/02/2018, 08/30/2017 Meningococcal Vaccine Completed 03/02/2022, 017 Fluoride Varnish Discontinued 05/25/2022, , 08/28/2019 Hepatitis C Screening Completed 04/10/2024 HIV Screening Completed 10/12/2024, 04/10/2024 RSV under 20 months Aged Out No longe r eligible based on patient's age to complete this topic Rotavirus Vaccines Aged Out No longer eligible based on patient's age to complete this topic Procedures Procedure Name Priority Date/Time Associated Diagnosis Comments CHLAMYDIA/N. GONORRHOEAE RNA, TMA, UROGENITAL Routine 10/12/2024 4:21 PM EST Screening for STD (sexually transmitted disease) HIV 1/2 ANTIGEN/ANTIBODY, FOURTH GENERATION W/RFL Routine 10/12/2024 12:00 AM EST Screening for STD (sexually transmitted disease) HEPATITIS C AB W/REFL TO HCV RNA, QN, PCR Routine 04/10/2024 3:17 PM EDT Healthcare maintenance Full PROPHYLAXIS - ADULT Routine 04/07/2024 2:00 PM EDT Dental plaque Dental calculus BITEWINGS - 4 RADIOGRAPHIC IMAGES Routine 04/07/2024 2:00 PM EDT PERIODIC ORAL EVALUATION - ESTABLISHED PATIENT Routine 04/07/2024 2:00 PM EDT Dental plaque Dental calculus Encounter for dental examination TOPICAL APPLICATION OF FLUORIDE VARNISH Routine 05/25/2022 12:00 AM EDT INTRAORAL - COMPLETE SERIES OF RADIOGRAPHIC IMAGES Routine 08/28/2019 12:00 AM EDT from Last 3 Months or Most Recently Relevant to Health Maintenance Results * Chlamydia/N. Gonorrhoeae RNA, TMA, Vagina (10/12/2024 4:21 PM EST) CT PCR NOT DETECTED Not Detect. [facility] Comment:A not detected test result does not exclude the possibilityof infection because test results can be affected byimproper specimen collection, concurrent antibiotic therapy,or the number of organisms in the specimen which may bebelow the sensitivity of the test. As with many diagnostictests, results from the Xpert CT/NG assay should beinterpreted in conjunction with other laboratory andclinical data available to the clinician.Xpert CT/NG performance has not been evaluated in patientsless than 14 years of age. The assay should not be used forthe evaluationof suspected sexual abuse or for other medico-legalindications. Additional testing is recommended in anycircumstance when false positive or false negative resultscould lead to adverse medical, social or psychologicalconsequences. NG PCR NOT DETECTED Not Detect. [facility] Comment:A not detected test result does not exclude the possibilityof infection because test results can be affected byimproper specimen collection, concurrent antibiotic therapy,or the number of organisms in the specimen which may bebelow the sensitivity of the test. As with many diagnostictests, results from the Xpert CT/NG assay should beinterpreted in conjunction with other laboratory andclinical data available to the clinician.Xpert CT/NG performance has not been evaluated in patientsless than 14 years of age. The assay should not be used forthe evaluationof suspected sexual abuse or for other medico-legalindications. Additional testing is recommended in anycircumstance when false positive or false negative resultscould lead to adverse medical, social or psychologicalconsequences. Swab Vaginal structure / Unknown 10/12/2024 4:21 PM EST 10/13/2024 12:52 PM EST Narrative [facility] - 10/13/2024 4:11 PM EST Vaginal us Ivet Guevara MD LAB MICROBIOLOGY - GENERA L ORDERABLES Final Result [facility] [address] [place] [phone] * HIV-1/1 Ag/Ab (10/12/2024 12:00 AM EST) HIV AB/AG Nonreactive Nonreactive [facility] Comment:HIV-1 p24 Ag and/or HIV-1/HIV-2 Ab not detected.A test result that is nonreactive does not exclude thepossibility of exposure to or infection with HIV-1 and/orHIV-2. Nonreactive results in this assay for individualswith prior exposure to HIV-1 and/or HIV-2 may be due toantigen and antibody levels that are below the limit ofdetection of this assay.The [employer] Alinity HIV Ag/Ab Combo assay result andsupplemental assay results should be interpreted inconjunction with the patient's clinical presentation,history and other laboratory results. If the results areinconsistent with clinical evidence, additional testing issuggested to confirm the result. Blood Venous blood specimen / Unknown 10/12/2024 10/12/2024 us Ivet Guevara MD LAB BLOOD ORDERABLES Cee l Result Performing Organization Address [facility] Co de Phone Number [facility] [address] [place] [phone] * Hepatitis C Antibody with Reflex to HCV, RNA, Quantitative, Real-Time PCR (04/10/2024 3:17 PM EDT) Hepatitis C Antibody Nonreactive Nonreactive [facility] Comment:Antibodies to HCV no t detected; does not exclude early acuteHCV infection. Blood Venous blood specimen / Unknown 04/10/2024 3:17 PM EDT 04/10/2024 6:02 PM EDT us Alma Donaldson NP LAB BLOOD ORDERABLES Final Resul t Performing Organization Address [facility] Co de Phone Number [facility] [address] [place] [address] [phone] from Last 3 Months or Most Recently Relevant to Health Maintenance Insurance [facility] C3 DENTAL-[facility] MEDICAID STAND CHILD Care Teams Resident Associate Relationship Specialty Start Date End Date Alma Donaldson NP [address] [place] [phone] PCP - General Family Medicine 02/27/24
--- OUTSIDE RECORDS SUMMARY | 2025-02-26 14:44 | XMS_ITS | Patient Health Record ---
Author Organization [facility] Address [address], [place] [id number] Care Team Providers Care Almond Paste Molder Name Role Phone [facility] Primary Care Provider Un available Dixie Ellsworth Unavailable Reason For Referral No Information Encounters Encounter Location Date Provider Diagnosis [facility] [address] [place] [address] [phone] 10/28/2024 Dixie Ellsworth [facility] [address] [place] [address] [phone] 11/03/2024 Dixie Ellsworth [facility] [address] [place] [address] [id number] 12/17/2024 Dixie Ellsworth [facility] [address] [place] [address] [phone] 12/08/2024 Dixie Ellsworth Plan Of Treatment No Information Insurance Providers Payer Name Payer Address Payer Phone Subscriber Number Group Number Insured Name Patient Relationship to Insured Coverage Start Date Coverage End Date MD Medicaid Standard [address] [place] [address] [id number] Jasper Simental Self - patient is the insured
[2025-02-26 16:28] LABS: HCG Quantitative < 2 mIU/mL
== END 2025-02-26 14:22 | disposition home or self-care (01) ==
LOC: HO.HHCL 14:21
PROVIDERS: Visit Provider Nurse Practitioner Family
DX: R10.32 Left lower quadrant pain (principal)
CPT/HCPCS: 36415; 84702

== ENCOUNTER 2025-03-01 00:05 | Emergency (ER) | payer MEDICAID, SELFPAY ==
--- NOTE | ~2025-03-01 | CT_ITS ---
CLINICAL HISTORY: left flank pain CT abdomen and pelvis without contrast Comparison: None Findings: The lung bases are clear. The liver, gallbladder, pancreas, spleen, adrenal glands, and kidneys are unremarkable. There is no urolithiasis or hydronephrosis. The appendix is normal. There is a moderate amount of stool in the colon. There is no bowel obstruction. There is minimal free fluid in the cul-de-sac almost certainly physiologic. There is a left ovarian cyst/dominant follicle roughly measuring about 3 cm, but margins are difficult to differentiate from ovarian parenchyma. The bladder is unremarkable. There is no fracture or suspicious lytic or sclerotic lesion. IMPRESSION: No acute abnormality in the abdomen or pelvis. This document has been electronically signed by: Tyler Saha MD on 03/01/2025 02:49:52
[2025-03-01 00:08] VITALS: BP 125/57; PULSE 91; RESP 18; TEMP 36.7; O2SAT 98; BMI 33.6
[2025-03-01 00:26] LABS: MANUAL DIFF FLAG NO
[2025-03-01 00:27] LABS: Basophils Percent Auto 0.4 % (0-2); Hematocrit 36.7 % (37.0-47.0); Hemoglobin 13.1 g/dl (12.0-16.0); Imm Gran Abs Auto 0.04 X10*3/uL (0.00-0.03); Imm Gran Pct Auto 0.8 % (0.0-0.4); Lymphocytes Absolute Auto 1.4 X10*3/uL (1.2-4.9); Mean Corpuscular HGB Conc 35.7 g/dl (31.0-35.0); Mean Corpuscular Hemoglobin 30.3 pg (27.0-33.0); Mean Corpuscular Volume 84.8 fL (80.0-98.0); Monocytes Absolute Auto 0.3 X10*3/uL (0.1-1.2); Monocytes Percent Auto 6.5 % (2-11); Neutrophils Percent Auto 62.3 % (45-73); Platelet Count 230 X10*3/uL (160-400); Red Blood Count 4.33 X10*6/uL (4.20-5.50); Red Cell Distribution Width 12.8 % (11.0-16.0); White Blood Count 4.8 X10*3/uL (4.8-10.8)
[2025-03-01 00:42] LABS: Alanine Aminotransferase 39 U/L (0-31); Alkaline Phosphatase 89 U/L (39-117); Anion Gap 14 (12-20); Aspartate Amino Transferase 60 U/L (5-31); Bilirubin Total 0.7 mg/dL (0.0-1.0); Blood Urea Nitrogen 12 mg/dL (9-16); Calcium 8.8 mg/dL (8.4-10.2); Carbon Dioxide 19 mmol/L (22-29); Chloride 106 mmol/L (96-108); Creatinine Clr Calc Pharmacy 119.2; Estimated Glomerular Filt Rate > 60; Glucose Random 116 mg/dL (60-115); Potassium 4.1 mmol/L (3.3-5.1); Sodium 135 mmol/L (135-145); Total Protein 6.9 g/dL (6.5-8.0)
[2025-03-01 00:52] LABS: HCG Quantitative < 2 mIU/mL
--- NOTE | 2025-03-01 00:55 | ED_ITS ---
HPI - General Adult General Chief complaint: General Medical Stated complaint: Ovary pain Time Seen by Provider: 03/01/25 00:55 Source: patient Limitations: no limitations History of Present Illness ED Provider: Mag Aragon PA-C HPI narrative: 19-year-old female with a history of morbid obesity and ovarian cysts presents with multiple complaints. Patient complains of lower abdominal discomfort for 3-4 days. Pain worse left greater than right, unable to describe the nature of her discomfort. She states ?my ovary hurts?. Associated headache, chills, generalized myalgias and poor appetite. Denies nausea, vomiting, diarrhea, constipation or dysuria. Related Data Previous Rx's ?Medication ?Instructions ?Recorded ibuprofen 600 mg tablet 600 mg PO Q6H PRN fever or pain 06/09/24 #30 tabs ondansetron 4 mg disintegrating 4 mg PO Q6-8H PRN nausea and 06/09/24 tablet vomiting #7 tabs polyethylene glycol 3350 17 17 g PO DAILY #510 grams 06/26/24 gram/dose oral powder (Miralax) benzonatate 200 mg capsule 200 mg PO TID PRN cough #20 caps 09/12/24 cefuroxime axetil 500 mg tablet 500 mg PO BID 7 days #14 tabs 09/12/24 ibuprofen 600 mg tablet 600 mg PO Q6H PRN fever or pain 10/03/24 #30 tabs metoclopramide HCl 10 mg tablet 10 mg PO Q6H PRN nausea and 03/01/25 vomiting #12 tabs Allergies Allergy/AdvReac Type Severity Reaction Status Date / Time amoxicillin [AMOXICILLIN] Allergy Unknown UNKNOWN Verified 03/01/25 00:08 shrimp Allergy Hives Verified 03/01/25 00:08 Review of Systems 2 Review of Systems: Yes all other systems are reviewed and are negative Constitutional: Constitutional: Reports chills, Denies fatigue, Denies fever(s) and Reports malaise Cardiovascular: Cardiovascular: Denies chest pain and Denies dyspnea Respiratory: Respiratory: Denies cough and Denies dyspnea Gastrointestinal: Gastrointestinal: Reports abdominal pain, Denies constipation, Denies diarrhea, Denies nausea and Denies vomiting Genitourinary: Genitourinary: Denies dysuria Endocrine: Endocrine: Denies fatigue PMF Past Medical History Attestation statement: The following information was validated with the patient. Medical History Depressed Anxiety ADH disorder Asthma Social History Social History Unable to assess alcohol history related to: Unknown Alcohol intake: current Alcohol intake frequency: holidays/special occasions only Patient Tobacco Use Status: Never used Tobacco Substance Use Type: Marijuana Physical Exam ED Vital Signs: Vital Signs - 24 hr 03/01/25 00:08 03/01/25 03:13 03/01/25 03:14 Temperature 98.0 F 98.2 F 98.2 F Pulse Rate 91 61 61 Respiratory Rate 18 16 16 Blood Pressure 125/57 L 105/62 105/62 Pulse Oximetry 98 99 Oxygen Delivery Method Room Air Room Air BMI result Body Mass Index 33.6 Const Other: Alert well-appearing Orientation/consciousness: patient oriented x3 Resp Effort & Inspection: normal respiratory effort Cardio Other: Normal peripheral perfusion GI Other: Abdomen is soft, nondistended obese, mild tenderness in left lower quadrant without guarding Skin Other: Warm dry no rash Neuro General: patient oriented x3, gait normal, no focal motor deficits and CN's II- XI intact bilaterally Psych Other: Cooperative Medications Administered Discontinued Medications Generic Name Dose Route Start Last Admin Trade Name Freq PRN Reason Stop Dose Admin Ketorolac Tromethamine 15 mg 03/01/25 01:35 03/01/25 01:58 Ketorolac Tromethamine 15 Mg/Ml Vial IM 03/01/25 01:36 15 mg ONCE ONE Administration Medical Decision Making Medical Decision Making MDM Narrative: 19-year-old female with a history of morbid obesity and ovarian cysts presents with multiple complaints. Patient complains of lower abdominal discomfort for 3-4 days. Pain worse left greater than right, unable to describe the nature of her discomfort. She states ?my ovary hurts?. Associated headache, chills, generalized myalgias and poor appetite. Denies nausea, vomiting, diarrhea, constipation or dysuria. Problem: Ovarian cysts and obesity History: Per patient I have considered the following differential diagnoses: Diverticulitis, torsion, viral syndrome, ectopic, Plan: Considering diverticulitis given the distribution of her discomfort, however she has no active GI symptoms. Also considering torsion. I will obtain a CT scan, if it was negative for diverticulitis, I will proceed to transvaginal ultrasound. Thought about ectopic, however she is not . This could be viral syndrome given associated myalgias and chills. Viral panel pending. Labs: No leukocytosis, not anemic, no electrolyte abnormality, not , urine not infected, viral panel negative CT abd: Findings: The lung bases are clear. The liver, gallbladder, pancreas, spleen, adrenal glands, and kidneys are unremarkable. There is no urolithiasis or hydronephrosis. The appendix is normal. There is a moderate amount of stool in the colon. There is no bowel obstruction. There is minimal free fluid in the cul-de-sac almost certainly physiologic. There is a left ovarian cyst/dominant follicle roughly measuring about 3 cm, but margins are difficult to differentiate from ovarian parenchyma. The bladder is unremarkable. There is no fracture or suspicious lytic or sclerotic lesion. IMPRESSION: No acute abnormality in the abdomen or pelvis. Lab Data 03/01/25 00:21 03/01/25 00:21 Labs: Lab Results 03/01/25 03/01/25 03/01/25 Range/Units 00:21 01:17 01:57 WBC 4.8 (4.8-10.8) X10*3/uL RBC 4.33 (4.20-5.50) X10*6/uL Hgb 13.1 (12.0-16.0) g/dl Hct 36.7 L (37.0-47.0) % MCV 84.8 (80.0-98.0) fL MCH 30.3 (27.0-33.0) pg MCHC 35.7 H (31.0-35.0) g/dl RDW 12.8 (11.0-16.0) % Plt Count 230 D (160-400) X10*3/uL MPV 9.0 L (9.4-12.3) fL Immature Gran % (Auto) 0.8 H (0.0-0.4) % Neut % (Auto) 62.3 (45-73) % Lymph % (Auto) 30.0 (20-40) % [place] % (Auto) 6.5 (2-11) % Eos % (Auto) 0.0 (0-4) % Baso % (Auto) 0.4 (0-2) % Lymph # (Auto) 1.4 (1.2-4.9) X10*3/uL [place] # (Auto) 0.3 (0.1-1.2) X10*3/uL Eos # (Auto) 0.0 (0.0-0.4) X10*3/uL Baso # (Auto) 0.0 (0.0-0.2) X10*3/uL Abs Immat Gran (auto) 0.04 H (0.00-0.03) X10*3/uL Absolute Neuts (auto) 3.0 (2.0-8.3) x10*3/uL Absolute Nucleated RBC 0.000 (0.0-0.012) X10*3/uL Nucleated RBC % (auto) 0.0 (0.0-0.2) /100WBC Sodium 135 (135-145) mmol/L Potassium 4.1 (3.3-5.1) mmol/L Chloride 106 (96-108) mmol/L Carbon Dioxide 19 L (22-29) mmol/L Anion Gap 14 (12-20) BUN 12 (9-16) mg/dL Creatinine 0.76 (0.5-1.4) mg/dL Estim Creat Clear Calc 119.2 Estimated GFR > 60 Random Glucose 116 H (60-115) mg/dL Calcium 8.8 D (8.4-10.2) mg/dL Total Bilirubin 0.7 (0.0-1.0) mg/dL AST 60 H (5-31) U/L ALT 39 H (0-31) U/L Alkaline Phosphatase 89 (39-117) U/L Total Protein 6.9 (6.5-8.0) g/dL Albumin 4.0 (3.5-5.0) g/dL Beta HCG, Quant < 2 mIU/mL Urine Color Yellow Urine Appearance Clear Urine pH 6.0 (5.0-9.0) Ur Specific Gatz[place] 1.015 (1.005-1.025) Urine Protein Negative (Neg-Trace) mg/dL Urine Glucose (UA) Negative (Negative) mg/dL Urine Ketones Negative (Negative) mg/dL Urine Blood Negative (Negative) Urine Nitrite Negative (Negative) Ur Leukocyte Esterase Negative (Negative) Influenza Type A (PCR) NEGATIVE (Negative) Influenza Type B (PCR) NEGATIVE (Negative) RSV RNA Qual (PCR) NEGATIVE (Negative) SARS-CoV-2 RNA (RT-PCR) NEGATIVE (Negative) Discharge Plan Discharge Clinical Impression: Constipation Patient Disposition: Home, Self-Care Instructions: Constipation (ED) Additional Instructions: All of your labs were normal, the CT scan revealed that you are constipated. See home care instructions. Use [id number] Colace, this is a stool softener, twice a day. Use [id number] MiraLax, either 3 to 4 times a day, to gradually alleviate your stool burden. You could also drink the MiraLax every hour until you begin having multiple large volume bowel movements. Once you clear your current stool burden, you need to stay on some form of a bowel regimen to help prevent further symptoms. Follow up with your primary care provider as needed. Use the metoclopramide as needed for nausea Prescriptions: New metoclopramide HCl 10 mg tablet 10 mg PO Q6H PRN (Reason: nausea and vomiting) Qty: 12 0RF No Action benzonatate 200 mg capsule 200 mg PO TID PRN (Reason: cough) Qty: 20 0RF cefuroxime axetil 500 mg tablet 500 mg PO BID 7 Days Qty: 14 0RF ibuprofen 600 mg tablet 600 mg PO Q6H PRN (Reason: fever or pain) Qty: 30 0RF ibuprofen 600 mg tablet 600 mg PO Q6H PRN (Reason: fever or pain) Qty: 30 0RF ondansetron 4 mg tablet,disintegrating 4 mg PO Q6-8H PRN (Reason: nausea and vomiting) Qty: 7 0RF polyethylene glycol 3350 [Miralax] 17 gram/dose powder 17 g PO DAILY Qty: 510 0RF Stand Alone Forms: Work/School Release Interventions: ED Discharge Assessment Last Done: 03/01/25 04:28 Discharge Date/Time: 03/01/25 04:30 Print Language: Faroese
[2025-03-01] MEDS: Ketorolac Tromethamine 15 MG/ML VIAL IM (01:58)
[2025-03-01 01:59] LABS: Influenza A PCR NEGATIVE (Negative); Influenza B PCR NEGATIVE (Negative); Resp Syncy Virus RNA Qual PCR NEGATIVE (Negative); SARS COV2 PCR INHOUSE NEGATIVE (Negative)
[2025-03-01 02:06] LABS: Appearance Urine Clear; Color Urine Yellow; Glucose Urine UA Negative (Negative); Leukocyte Esterase Urine Negative (Negative); Nitrite Urine Negative (Negative); Specific Gravity - Urine 1.015 (1.005-1.025); Urine Blood Negative (Negative); Urine Ketones Negative (Negative); Urine Protein Negative (Neg-Trace)
[2025-03-01 03:13] VITALS: BP 105/62; PULSE 61; RESP 16; TEMP 36.8; O2SAT 99
[2025-03-01 03:14] VITALS: BP 105/62; PULSE 61; RESP 16; TEMP 36.8
[2025-03-01 04:28] VITALS: BP 105/62; PULSE 61; RESP 16; TEMP 36.8
== END 2025-03-01 04:30 | disposition home or self-care (01) ==
PROVIDERS: Emergency Provider Internal Medicine
DX: K59.00 Constipation, unspecified (principal); N94.89 Other specified conditions associated with female genital organs and menstrual cycle; R10.2 Pelvic and perineal pain; Z03.818 Encounter for observation for suspected exposure to other biological agents ruled out; Z79.899 Other long term (current) drug therapy
CPT/HCPCS: 0241U; 36415; 74176; 80053; 81003; 84702; 85025; 96372; 99284; J1885

== ENCOUNTER → 2025-03-01 01:35 | Outpatient (BNV) | payer MEDICAID, SELFPAY | PROVIDERS: Visit Provider Radiology Diagnostic Radiology | DX: R10.32 Left lower quadrant pain (principal) | CPT/HCPCS: 74176 ==

== ENCOUNTER 2025-04-19 02:58 | Emergency (ER) | payer MEDICAID, SELFPAY ==
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
[2025-04-19 03:00] VITALS: BP 117/64; PULSE 91; RESP 20; TEMP 36.8; O2SAT 100; BMI 29.3
[2025-04-19 03:12] VITALS: BP 117/64; PULSE 91; RESP 20; TEMP 36.8; O2SAT 100
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
[2025-04-19 04:07] VITALS: BP 115/73; PULSE 77; RESP 16; TEMP 37.3; O2SAT 97
[2025-04-19 04:27] VITALS: BP 115/73; PULSE 77; RESP 16; TEMP 37.3; O2SAT 97
== END 2025-04-19 04:39 | disposition home or self-care (01) ==
LOC: HO.ED 04:32
PROVIDERS: Emergency Provider Internal Medicine
DX: S20.419A Abrasion of unspecified back wall of thorax, initial encounter (principal); S13.4XXA Sprain of ligaments of cervical spine, initial encounter; M54.2 Cervicalgia; M54.50 Low back pain, unspecified; V43.52XA Car driver injured in collision with other type car in traffic accident, initial encounter; Y93.9 Activity, unspecified; Y92.410 Unspecified street and highway as the place of occurrence of the external cause; Y99.8 Other external cause status
CPT/HCPCS: 72070; 72100; 99283; 99284

== ENCOUNTER → 2025-04-19 03:19 | Outpatient (BNV) | payer MEDICAID, SELFPAY | PROVIDERS: Emergency Provider Internal Medicine; Visit Provider General Practice | DX: M54.6 Pain in thoracic spine (principal) | CPT/HCPCS: 72070; 72100 ==

== ENCOUNTER 2025-06-20 21:11 | Emergency (ER) | payer MEDICAID, SELFPAY ==
--- OUTSIDE RECORDS SUMMARY | 2024-11-09 09:00 | XMS_ITS ---
Author Organization [facility] Address [address], [place] [id number] Care Team Providers Care Instrument Maker Name Role Phone [facility] Primary Care Provider Dixie Ellsworth Unavailable [phone] REASON FOR VISIT Housing Encounters Encounter Location Date Provider Diagnosis [facility] [address] [place] [id number] 11/09/2024 Dixie Ellsworth Plan Of Treatment No Information Progress Notes * Jasper SUN DDOB:07/2006 (19 yo F)Acc No.[id number]:11/09/2024 Case Management Patient: Jasper REDD Provider: Fausto Ellsworth :2005 A ge:18 Y S ex:Female Date:11/09/2024 Address:[address] [place], [place] [id number] Pcp:[facility] Subjective: * Chief Complaints: * 1 . Housing. * Medical History: Objective: Assessment: Plan: * Treatment: * Images: Billing Information: * Visit Code: * Procedure Codes: Care Plan Details* * Electronic signature of Hiren Ellsworth on 06/20/2025 at 09:30 PM EDT Sign off status: Pending * Provider: Fausto Ellsworth Date: 01/10/2024 Generated for Terrencei karina/Concepcion/eTransmitting on: 0 06/20/2025 09:30 PM EDT
[2025-06-20 21:14] VITALS: BP 108/66; PULSE 99; RESP 18; TEMP 36.8; O2SAT 98; BMI 32.9
--- OUTSIDE RECORDS SUMMARY | 2025-06-20 21:31 | XMS_ITS ---
Author Name [facility] Organization Unknown History of Medication Use Medication Directions Dispensed Refills Start Date End Date Stat us famotidine (PEPCID) 10 MG tablet Take by mouth daily act tia Allergies Allergen Reaction Severity Comment Documented Date Source Statu s AMOXICILLIN 06/04/2022 [facility] active Problems Problem Status Onset Date Problem Type Date of Resolution Source Epigastric pain active EncounterDiagnosisAct [facility] Constipation, unspecified constipation type active EncounterDiagnosisAct C [facility] Encounters Encounter Type Encounter Reason Primary Diagnosis Location Date Ambulatory [facility] 06/04/2022 Care Team Organization Name Specialty Phone Email Start Date End Da te [facility] 06/04/2022
--- OUTSIDE RECORDS SUMMARY | 2025-06-20 21:31 | XMS_ITS | Encounter Summary ---
Author Organization [employer] Address [address] [place] [address] Care Team Providers Care Benzene Still Utility Operator Name Role Phone Alma Donaldson NP Primary Care Provider [phone] Encounter Details Date Type Department Care Team (Late st Contact Info) Description 04/10/2024 Orders Only [facility] [address] [place] [address] Ivet Li MD [address] [place] [address] Community acquired pneumonia, unspecified laterality (Primary Dx) [...] with others, in a hotel, in a residential, living outside on the street, on a [...] Care Team (Late st Contact Info) Description 07/29/2025 2:00 PM EDT Office Visit [facility] [address] [place] [address] Neal, Julieta, OD [address] [place] [address] documented as of this encounter Procedures Procedure [...] (09/03/2024 2:51 AM EDT) Color Urine Yellow [facility] Appearance Urine Clear [facility] PH 6.5 5.0 - 9.0 [facility] Glucose Urine UA Negative Negative mg/dL [facility] Urine Blood Negative Negative [facility] Specific [place] - Urine <=1.005 1.005 - 1.025 [facility] Urine Protein Negative Neg-Trace mg/dL [facility] Urine Ketones Negative Negative mg/dL [facility] Nitrite Urine Negative Negative [facility] Leukocyte Esterase Urine Negative Negative [facility] RBC Urine 0-2 0 - 2 /HPF [facility] Urine WBC 0-5 0 - 5 /HPF [facility] Urine Squamous Epithelial Cell 0-2 0 - 2 /HPF [facility] Urine Bacteria None Seen None Seen [facility] Hyaline Casts, Urine 0-2 0 - 2 /LPF [facility] 09/03/2024 2:51 AM EDT 09/03/2024 2:55 AM EDT Narrative [facility] - 09/03/2024 3:01 AM EDT Urine, Clean Catch us Generic External Data Provider LAB URINE ORDERAB LES Final Result [facility] [address] [place] [phone] * hCG, Total, Quantitative (09/03/2024 12:43 AM EDT) HCG Quantitative <2 mIU/mL [facility] Comment:Weeks post LMP Appr oximate hCG(Last Menstrual Period) Range (mIU/ml)3 - 4 weeks 9 - 1304 - 5 weeks 75 - 2,6005 - 6 weeks 850 - 20,8006 - 7 weeks 4000 - 100,2007 - 12 weeks 11,500 - 289,56677 - 16 weeks 18,300 - 137,92907 - 29 weeks (2nd trimester) 1,400 - 53,20822 - 41 weeks (3rd trimester) 940 - [...] Provider LAB BLOOD ORDERAB LES Final Result [facility] [address] [place] [address] [phone] * (ABNORMAL) Comprehensive Metabolic Panel (09/03/2024 12:43 AM EDT) Sodium 139 135 - 145 mmol/L [facility] Potassium 3.8 3.3 - 5.1 mmol/L [facility] Chloride 107 96 - 108 mmol/L [facility] Carbon Dioxide 25 22 - 29 mmol/L [facility] Anion Gap 11(L) 12 - 20 [facility] Urea Nitrogen (BUN) 12 9 - 16 mg/dL [facility] Creatinine, Serum 0.72 0.5 - 1.4 mg/dL [facility] Creatinine Clr Calc Pharmacy TNP [facility] Comment:Cannot be calculated ; patient is less than 19 years old. Estimated Glomerular Filt Rate >60 [facility] Comment:NOTE: For -Am erican individuals, multiply the result by 1.210.Chronic Kidney Disease: Estimated GFR < 60 mL/min/[id number] Kidney Disease: Estimated GFR < 15 mL/min/1.73m2 Glucose 89 60 - 115 mg/dL [facility] Calcium 9.8 8.4 - 10.2 mg/dL [facility] Bilirubin, Total 0.3 0.0 - 1.0 mg/dL [facility] Aspartate Amino Transferase 16 5 - 31 U/L [facility] Alanine Aminotransferase 13 0 - 31 U/L [facility] Total Protein 7.5 6.5 - 8.0 g/dL [facility] Albumin Level 4.5 3.5 - 5.0 g/dL [facility] Alkaline Phosphatase 92 39 - 117 U/L [facility] 09/03/2024 12:4 3 AM EDT 09/03/2024 12:45 AM EDT us Generic External Data Provider LAB BLOOD ORDERAB LES Final Result [facility] [address] [place] [phone] * (ABNORMAL) CBC auto differential (09/03/2024 12:43 AM EDT) White Blood Count 9.7 4.8 - 10.8 X10*3/uL [facility] Red Blood Count 4.40 4.20 - 5.50 X10*6/uL [facility] Hemoglobin 13.3 12.0 - 16.0 g/dl [facility] Hematocrit 38.4 37.0 - 47.0 % [facility] Mean Corpuscular Volume 87.3 80.0 - 98.0 fL [facility] Mean Corpuscular Hemoglobin 30.2 27.0 - 33.0 pg [facility] Mean Corpuscular HGB Conc 34.6 31.0 - 35.0 g/dl [facility] Red Cell Distribution Width 12.5 11.0 - 16.0 % [facility] Platelet Count 377 160 - 400 X10*3/uL [facility] Mean Platelet Volume 8.9(L) 9.4 - 12.3 fL [facility] Neutrophils Percent Auto 54.7 45 - 73 % [facility] Imm Gran Pct Auto 0.4 0.0 - 0.4 % [facility] Lymphocytes Percent Auto 36.7 20 - 40 % [facility] Monocytes Percent Auto 5.8 2 - 11 % [facility] Eosinophils Percent Auto 2.0 0 - 4 % [facility] Basophils Percent Auto 0.4 0 - 2 % [facility] NRBC Pct Auto 0.0 0.0 - 0.2 /100WBC [facility] Neutrophils Absolute Auto 5.3 2.0 - 8.3 x10*3/uL [facility] Imm Gran Abs Auto 0.04(H) 0.00 - 0.03 X10*3/uL [facility] Lymphocytes Absolute Auto 3.6 1.2 - 4.9 X10*3/uL [facility] Monocytes Absolute Auto 0.6 0.1 - 1.2 X10*3/uL [facility] Eosinophils Absolute Auto 0.2 0.0 - 0.4 X10*3/uL [facility] Basophils Absolute Auto 0.0 0.0 - 0.2 X10*3/uL [facility] NRBC Abs Auto 0.000 0.0 - 0.012 X10*3/uL [facility] 09/03/2024 12:4 3 AM EDT 09/03/2024 12:45 AM EDT us Generic External Data Provider LAB BLOOD ORDERAB LES Final Result Performing Organization Address City/State/[facility] Co de Phone Number [facility] [address] [place] [address] [phone] documented in this encounter Visit Diagnoses Diagnosis Community acquired pneumonia, unspecified laterality- Primary documented in this encounter Additional Health Concerns Assessment Noted Time PHQ-9 Depression Total Score: 21 024 9:17 AM EDT documented as of this encounter Care Teams Benzene Still Utility Operator Relationship Specialty Start Date End Date Alma Donaldson NP [address] [place] [address] PCP - General Family Medicine 02/27/24 documented as of this encounter
--- OUTSIDE RECORDS SUMMARY | 2025-06-20 21:31 | XMS_ITS | Clinical Summary ---
Demographics Address [address] [place] [address] Mobile Phone Home Phone Phone Email Address Preferred Language es/en Marital Status Single Worship Affiliation Unknown Race Other Race Ethnic Group Unknown Author Organization [facility] Address [address] [place] [address] Care Team Providers Care Campaign Associate Name Role Phone Hailey Molina MD Primary Care Provider [phone] Allergies Active Allergy Reactions Criticality Noted Date Comments Amoxicillin 06/04/2022 Shrimp 10/21/2024 Facial swelling Medications No known medications Active Problems Problem Noted Date Diagnosed Date Cyst of left ovary 10/21/2024 Other chronic pain 10/21/2024 Anemia 04/10/2024 Overview (07/16/2024): Last Assessment & Plan: Asymptomatic, trend labs Anxiety 04/10/2024 Overview (07/16/2024): Last Assessment & Plan: During I[facility] Consult Jasper presenting with excessive [...] concern, and recent move. J[place] moved [place] from [place] on [place]/2023. She's currently living with her mom and identifies her housing and financial situation as triggers for sxs. Used to see a therapist and [place] in [place]. Aware of importance of utilizing grounding techniques. During today's consult, Jasper was engaged with active and reflective listening. Reviewed and assessed risks, current triggers, protective factors using open-ended questions. We explored different grounding techniques that might be important to utilize when symptoms arise. Jasper will continue to see her therapist at [facility] and request to talk with clinician if needed during next medical visits. PLAN: (check all that apply) Continue with current services (defined as services in the past 12 months) . Pt reached out to [facility] / [facility] and has started OP individual therapy. Pt reports she has completed her second session with [facility]. Not interested in starting medication at the moment. Will continue to see therapist at [facility] and request to see clinician if needed during next medical visits. Chronic left-sided low back pain without sciatic a 01/27/2024 Depressive disorder 09/04/2018 Overview (07/16/2024): Last Assessment & Plan: During IBH Consult [...] concern, and recent move. [place] moved [place] on [place]2023. She's currently living with her mom and identifies her housing situation as a trigger for sxs. Used to see a therapist and psychiatrist in [place]. Aware of importance of utilizing grounding techniques and open to re-start medication to treat anxiety. PLAN: (check all that apply) Behavioral Health Integration Plan Self-referred to [facility] per patient's preferences. Information provided for [facility] and [facility] intake. 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 Overview (07/16/2024): Last Assessment & Plan: Pt endorses diffuse msk pain, is in care with [facility] and currently in PT, advised pt follow up with [facility] team, pt is comfortable with that plan, Resolved Problems Problem Noted Date Diagnosed Date Resolved Date Dysmenorrhea 04/10/2024 10/21/2024 Overview (07/16/2024): Last Assessment & Plan: Found rx for ibuprofen beneficial hormonal options offered pt declines, product development referral pending Social History Tobacco Use Types Packs/Day Years Used Date Smoking Tobacco: Never Smokeless Tobacco: Never Tobacco Cessation:Counseling Given: Not Answered Comments No Sex and Gender Information Value Date Recorded Sex Assigned at Female 08/27/2022 11:37 PM EDT Legal Sex Female 11:37 PM EDT Gender Identity Not on file Sexual Orientation Not on file Last Filed Vital Signs Vital Sign Reading Time Taken Comments Blood Pressure 110/66 10/21/2024 10:48 AM EST Pulse 94 10/21/2024 10:48 AM EST Temperature 36.4 C (97.5 F) 10/21/2024 10:48 AM EST Respiratory Rate 20 10/21/2024 10:4 8 AM EST Oxygen Saturation - - Inhaled Oxygen Concentration - - Weight 85.5 kg (188 lb 7.9 oz) 10/21/20 10:48 AM EST Height 158.8 cm (5' 2.52 ) 10/21/2024 1 0:48 AM EST Body Mass Index 33.9 10/21/2024 10:48 AM EST Body Mass Index Percentile 96.58% 10/21 10:48 AM EST Growth Chart: [facility] (Girls, 2- 20 Years) Plan of Treatment Not on file Insurance * Guarantor: Jasper Simental Account Type Relation to Patient Date of Phone Billing Address Personal/Family Self 2005 [address] [place] [address] MEDICAID OF [facility] * Guarantor: KAVIN NIXON Account Type Relation to Patient Date of Phone Billing Address Personal/Family Mother [address] [place] [id number] Care Teams Campaign Associate Relationship Specialty Start Date End Date Hailey Molina MD [address] [place] [address] [place] [phone] PCP - General 04/24/22
[2025-06-20 21:53] LABS: IDNOW Serial# 55D5AD1C; Strep A Nucleic Acid Negative (Negative)
--- NOTE | 2025-06-20 21:55 | ED.URI ---
HPI - URI/Sore Throat General Chief Complaint: Upper Respiratory Symptoms Stated Complaint: itchy eyes, throat pain, mucus in nose Time Seen by Provider: 06/20/25 21:42 Source: patient Mode of arrival: ambulatory Limitations: no limitations History of Present Illness ED Provider: DR. Landers HPI Narrative: 19-year-old female came in for evaluation of discharge from both eyes, redness, itchiness x1 day. And sore throat, runny nose, body ache x1 week, friend had same symptoms and doing fine now. Do not use contact lens. Related Data Previous Rx's ?Medication ?Instructions ?Recorded ibuprofen 600 mg tablet 600 mg PO Q6H PRN fever or pain 06/09/24 #30 tabs ondansetron 4 mg disintegrating 4 mg PO Q6-8H PRN nausea and 06/09/24 tablet vomiting #7 tabs polyethylene glycol 3350 17 17 g PO DAILY #510 grams 06/26/24 gram/dose oral powder (Miralax) benzonatate 200 mg capsule 200 mg PO TID PRN cough #20 caps 09/12/24 cefuroxime axetil 500 mg tablet 500 mg PO BID 7 days #14 tabs 09/12/24 ibuprofen 600 mg tablet 600 mg PO Q6H PRN fever or pain 10/03/24 #30 tabs metoclopramide HCl 10 mg tablet 10 mg PO Q6H PRN nausea and 03/01/25 vomiting #12 tabs erythromycin 5 mg/gram (0.5 %) eye 0.5 inch ophthalmic (eye) BID #3.5 06/20/25 ointment grams Allergies Allergy/AdvReac Type Severity Reaction Status Date / Time amoxicillin (AMOXICILLIN) Allergy Unknown UNKNOWN Verified 06/20/25 21:17 shrimp Allergy Hives Verified 06/20/25 21:17 Review of Systems Review of Systems: All other systems are reviewed and are negative Constitutional: Reports as per HPI and Reports no additional constitutional complaints Eyes: Reports as per HPI and Reports no additional eye complaints Reports system reviewed and no additional complaints, except as documented Cardiovascular: Reports as per HPI and Reports no additional cardiovascular complaints Respiratory: Reports as per HPI and Reports no additional respiratory complaints Gastrointestinal: Reports as per HPI and Reports no additional gastrointestinal complaints Genitourinary: Reports no additional female genitourinary complaints Musculoskeletal: Reports no additional musculoskeletal complaints Skin/Breast: Reports system reviewed and no additional complaints, except as docu Psychiatric: Reports no additional psychiatric complaints Endocrine: Reports no additional endocrine complaints Hematologic/Lymphatic: Reports no additional hematologic/lymphatic complaints Allergic/Immunologic: Reports no additional allergic/immunologic complaints Reports system reviewed and no additional complaints, except as documented and Reports Abnormal speech present [facility] Past Medical History Medical History Depressed Anxiety ADH disorder Asthma Social History Social History Unable to assess alcohol history related to: Unknown Alcohol intake: current Alcohol intake frequency: holidays/special occasions only Patient Tobacco Use Status: Never used Tobacco Substance Use Type: Marijuana Advance Directives: No Advance Directives Information Provided: Yes Physical Exam Vital Signs: Vital Signs: Last Vital Signs Temp 98.2 F 06/20/25 21:14 Pulse 99 06/20/25 21:14 Resp 18 06/20/25 21:14 BP 108/66 06/20/25 21:14 Pulse Ox 98 06/20/25 21:14 O2 Del Method Room Air 06/20/25 21:14 BMI result Body Mass Index 32.9 Vital signs have been reviewed and appear to be correct. Blood pressure elevated. Heart rate normal. Respiratory rate normal. Temperature normal. Oxygen saturation normal. Appearance: Alert. Oriented X3. No acute distress. Head: Normal external exam. Normocephalic. Atraumatic. No [place] signs noted. No raccoon eyes noted Eyes: PERRLA. EOMI. Bilateral conjunctival injection, Eyelids normal. ENT: TM's Normal. Pharynx normal. Uvula midline. Moist mucous membranes. No trismus noted. No drooling noted. No muffled voice noted. Neck: Normal inspection. Neck supple. FROM. No adenopathy. Thyroid Normal. No meningeal signs. No neck mass noted. CVS: Normal heart rate and rhythm. Heart sound normal. No murmurs noted. Pulses normal throughout. Respiratory: No respiratory distress. Painless inspiration. Breath sounds normal. No wheezes/rales/rhonchi noted. Chest nontender. No accessory muscle usage noted or decreased air movement noted. Abdomen: Soft and nontender. Bowel sounds normal in all 4 quadrants. No distention noted. No organomegaly noted. No visible injury noted. Back: No CVA tenderness. Full range of motion noted. Skin: Skin warm and dry. Normal skin color. Normal skin turgor. No rashes/lesions/lacerations noted. Extremities: No lower extremity edema. Extremities exhibit normal range of motion. Extremities nontender. Neuro: Oriented X 3. Cranial nerve exam: II-XII are grossly intact No motor deficit. No sensory deficit. Reflexes normal. Course Reevaluation(s) Reevaluation #1: Swabs are negative for strep pharyngitis, and respiratory viruses. Conjunctivitis will start on erythromycin ointment. Patient declined in her risk for STDs. Time: 22:43 Medical Decision Making Differential Diagnosis Differential Diagnoses: The differential diagnosis associated with the presentation includes (A strep pharyngitis, upper respiratory infection, conjunctivitis.) Admission/Observation Consideration of admission/observation: Escalation of care including admission/observation considered Lab Data MDM Lab Attestation statement: I reviewed the patient's lab results. Labs: Lab Results 06/20/25 Range/Units 21:25 Influenza Type A (PCR) NEGATIVE (Negative) Influenza Type B (PCR) NEGATIVE (Negative) RSV RNA Qual (PCR) NEGATIVE (Negative) SARS-CoV-2 RNA (RT-PCR) NEGATIVE (Negative) S. pyogenes GrpA DONALDO Negative (Negative) Discharge Plan Discharge Clinical Impression: Conjunctivitis Patient Disposition: Home, Self-Care Instructions: Conjunctivitis (ED) Prescriptions: New erythromycin 5 mg/gram (0.5 %) ointment 0.5 inch ophthalmic (eye) BID Qty: 3.5 0RF Rx Instructions: Applied to both eyes, a quarter-inch applied under lower eyelid of each eye twice a day. No Action benzonatate 200 mg capsule 200 mg PO TID PRN (Reason: cough) Qty: 20 0RF cefuroxime axetil 500 mg tablet 500 mg PO BID 7 Days Qty: 14 0RF ibuprofen 600 mg tablet 600 mg PO Q6H PRN (Reason: fever or pain) Qty: 30 0RF ibuprofen 600 mg tablet 600 mg PO Q6H PRN (Reason: fever or pain) Qty: 30 0RF ondansetron 4 mg tablet,disintegrating 4 mg PO Q6-8H PRN (Reason: nausea and vomiting) Qty: 7 0RF metoclopramide HCl 10 mg tablet 10 mg PO Q6H PRN (Reason: nausea and vomiting) Qty: 12 0RF polyethylene glycol 3350 [Miralax] 17 gram/dose powder 17 g PO DAILY Qty: 510 0RF Referrals: [facility] [Primary Care Provider, Medical] Print Language: Malay
[2025-06-20 22:10] LABS: Resp Syncy Virus RNA Qual PCR NEGATIVE (Negative); SARS COV2 PCR INHOUSE NEGATIVE (Negative)
[2025-06-20] MEDS: Erythromycin Base 0.5% Oph Oin 1 GM TUBE 1 CM EYE-BOTH (23:02)
[2025-06-20 23:06] VITALS: BP 108/66; PULSE 99; RESP 18; TEMP 36.8; O2SAT 98
== END 2025-06-20 23:07 | disposition home or self-care (01) ==
PROVIDERS: Emergency Provider Emergency Medicine
DX: H10.9 Unspecified conjunctivitis (principal); J02.9 Acute pharyngitis, unspecified; J45.909 Unspecified asthma, uncomplicated; Z79.899 Other long term (current) drug therapy; R09.89 Other specified symptoms and signs involving the circulatory and respiratory systems; R42 Dizziness and giddiness
CPT/HCPCS: 87637; 87651; 99282; 99283

== ENCOUNTER 2025-08-06 10:13 | Outpatient (REF) | payer MEDICAID, SELFPAY ==
--- NOTE | ~2025-08-06 | XR_ITS ---
EXAMINATION: XR SACRUM AND COCCYX CLINICAL INFORMATION: 2 weeks coccyx pain, localized tenderness COMPARISON: Lumbar spine April 19, 2025 TECHNIQUE: 2 views of the sacrum and 2 views of the coccyx were obtained. FINDINGS: There are no fractures. No bone, joint or soft tissue abnormality is demonstrated. XR/XR sacrum coccyx min 2V IMPRESSION: Unremarkable examination. Electronically signed by: Liam Polk MD 08/06/2025 10:47 AM EDT
--- OUTSIDE RECORDS SUMMARY | 2025-08-06 09:45 | XMS_ITS | Encounter Summary ---
Author Organization [employer] Address [address] [place] [address] Care Team Providers Care Opener Name Role Phone Alma Donaldson NP Primary Care Provider [phone] Encounter Details Date Type Department Care Team (Late st Contact Info) Description 08/06/2025 9:45 AM EDT Office Visit [facility] [address] [place] [address] Alma Donaldson NP [address] [place] [address] Chronic idiopathic constipation (Primary Dx); Coccyx pain Social History Tobacco Use Types Packs/Day Years Used Date Smoking Tobacco: Never Passive Smoke Exposure: Never Tobacco Cessation:Counseling Given: Not Answered Alcohol Use Standard Drinks/Week Comments Never 0 (1 standard drink = 0.6 oz pur e alcohol) Alcohol Answer Date Recorded Frequency of Alcohol Consumption Not on file 05/22/2024 Average Number of Drinks Not on file 024 Frequency of Binge Drinking Not on file 03/2024 Score 0 05/22/2024 Depression Answer Date Recorded Patient Health Questionnaire-9 Score 18 05/18/2025 Patient Health Questionnaire-9 Score 18 05/18/2025 Last PHQ-9: Questionnaire Data Not on file 0 05/18/2025 Housing Stability Answer Date Recorded What is your housing situation today? I am not s ure 05/18/[address] you li ve. Do you have problems with any of the following? Water leaks 05/18/2025 Food Insecurity Answer Date Recorded Within the past 12 months, y ou worried that your food would run out before you got money to buy more: Sometimes True 2024 Within the past 12 months,th e food you bought just didn't last and you didn't have enough money to get more: Sometimes True 03/23/2025 Transportation Answer Date Recorded In the past 12 months, has l ack of transportation kept you from medical appts, meetings, work or from getting things needed for daily living? No 03/23/2025 Utilities Answer Date Recorded In the past 12 months, has t he electric, gas, oil or water company threatened to shut off services in your home? No 05/18/2025 Depression Answer Date Recorded Patient Health Questionnaire-2 Score 5 05/18/2025 Internet Access Answer Date Recorded Internet Access Q1 Yes 03/23/2025 Internet Access Q2 Not on file 03/23/2025 Comments No Sex and Gender Information Value Date Recorded Sex Assigned at Female 09/17/2022 10:32 AM EDT Legal Sex Female 10:32 AM EDT Gender Identity Female 09/17/2022 10:32 AM EDT Sexual Orientation Straight 04/30/2024 1: 39 PM EDT documented as of this encounter Last Filed Vital Signs Vital Sign Reading Time Taken Comments Blood Pressure 124/82 08/06/2025 9:51 AM EDT Pulse 82 08/06/2025 9:51 AM EDT Temperature 36.7 C (98.1 F) 08/06/2025 9:51 AM EDT Respiratory Rate 16 08/06/2025 9:51 AM EDT Oxygen Saturation 99% 08/06/2025 9:51 AM EDT Inhaled Oxygen Concentration - - Weight 79.5 kg (175 lb 2.6 oz) 08/06/2025 9:51 A M EDT Height 157.5 cm (5' 2 ) 08/06/2025 9:51 AM EDT Body Mass Index 32.04 08/06/2025 9:51 AM EDT documented in this encounter Miscellaneous Notes * Assessment & Plan Note - Alma Donaldson NP - 08/06/2025 9:45 AM EDTAssociated Problem(s): Chronic idiopathic constipation * Assessment & Plan Note - Alma Donaldson NP - 08/06/2025 9:45 AM EDTAssociated Problem(s): Coccyx pain Orders: XR Sacrum Coccyx 2+ Views; Future lidocaine (Lidoderm) 5 % patch; Apply 1 patch topically Once per day. Remove & discard patch within 12 hours or as directed by MD. documented in this encounter Plan of Treatment Scheduled Orders Name Type Priority Associated Diagnoses Orde r Schedule XR Sacrum Coccyx 2+ Views Imaging Routine Coccyx pain Expected: 08/06/2025, Expires: 08/06/2026 documented as of this encounter Visit Diagnoses Diagnosis Chronic idiopathic constipation- Primary Unspecified constipation Coccyx pain Other disorder of coccyx documented in this encounter Additional Health Concerns Assessment Noted Time PHQ-9 Depression Total Score: 18 025 3:29 PM EDT documented as of this encounter Care Teams Opener Relationship Specialty Start Date End Date Alma Donaldson NP [address] [place] [id number] PCP - General Family Medicine 02/27/24 documented as of this encounter
--- OUTSIDE RECORDS SUMMARY | 2025-08-06 10:49 | XMS_ITS | Clinical Summary ---
Author Organization [employer] Address [address] [place] [address] Care Team Providers Care Pigment Pumper Name Role Phone Alma Donaldson NP Primary Care Provider [phone] Allergies Active Allergy Reactions Criticality Noted Date Comments Amoxicillin Hives 08/30/2017 Shrimp Extract 10/21/2024 Facial swelling Medications * This document contains information received from the source organization and may not represent a complete record from that organization. sennosides (Senokot) 8.6 MG tabletIndication s:Constipation, unspecified constipation type 1 tablet today and in the morning tomorrow, then once daily prn constipation 30 tablet 03/02/20 25 Active cetirizine (ZyrTEC) 10 MG tabletIndication s:Allergy, initial encounter Take 1 tablet (10 mg) by mouth Once per day. 30 tablet 03/18/20 25 026 Active fluticasone (Flonase) 50 MCG/ACT nasal sprayIndications :COVID-19 Administer 1 spray into each nostril Once per day. Shake gently. Before first use, prime pump. After use, clean tip and replace cap. 16 mL 03/18/20 25 026 Active albuterol (ProAir HFA) 108 (90 Base) MCG/ACT inhalerIndicatio ns:Mild intermittent asthma with acute exacerbation Inhale 2 puffs every 4 (four) hours if needed for wheezing. 18 g 2 03/18/20 25 Active ibuprofen 600 MG tablet Take 1 tablet (600 mg) by mouth every 6 (six) hours if needed for mild pain or fever. 40 tablet 1 03/18/20 25 026 Active guaiFENesin (Mucinex) 600 MG 12 hr tablet Take 1 tablet (600 mg) by mouth if needed in the morning and at bedtime for cough or congestion. Do not crush, chew, or split. 30 tablet 03/18/20 25 026 Active pseudoephedrine ER (Sudafed-12 Hour) 120 MG 12 hr tablet Take 1 tablet (120 mg) by mouth every 12 (twelve) hours if needed for congestion. Do not crush, chew, or split. 20 tablet 03/18/20 25 026 Active famotidine (Pepcid) 20 MG tabletIndication s:Nausea TAKE 1 TABLET BY MOUTH TWICE A DAY 180 tablet 05/27/20 25 Active psyllium (Metamucil) 0.36 g capsule Take 6 capsules (2.16 g) by mouth Once per day. 180 capsule 11 08/06/20 25 026 Active lidocaine (Lidoderm) 5 % patchIndications :Coccyx pain Apply 1 patch topically Once per day. Remove & discard patch within 12 hours or as directed by MD. 30 patch 08/06/20 25 025 Active benzoyl peroxide (Benzac AC) 10 % external wash wash face with cleanser during showers 05/17/20 22 025 Discontin ued(Thera py completed ) traZODone (Desyrel) 100 MG tablet Take by mouth at bedtime. 025 Discontin ued(Thera py completed ) Multiple Vitamin (multivitamin) tabletIndication s:Acute cough 1 tab daily 90 tablet 3 04/14/20 24 025 Discontin ued(Thera py completed ) acetaminophen (Tylenol) 500 MG tablet Take 1 tablet (500 mg) by mouth every 6 (six) hours if needed for mild pain. 60 tablet 11/09/20 24 025 Discontin ued(Thera py completed ) Active Problems Problem Noted Date Diagnosed Date Chronic idiopathic constipation 08/06/2025 Assessment & Plan (08/06/2025 10:07 AM EDT): Coccyx pain 08/06/2025 Assessment & Plan (08/06/2025 10:07 AM EDT): Orders: XR Sacrum Coccyx 2+ Views; Future lidocaine (Lidoderm) 5 % patch; Apply 1 patch topically Once per day. Remove & discard patch within 12 hours or as directed by MD. Viral upper respiratory tract infection 06/25/20 25 Assessment & Plan (06/25/2025 4:09 PM EDT): drink plenty of fluids and rest Moderate tetrahydrocannabinol (THC) dependence 0 06/17/2025 Assessment & Plan (06/17/2025 4:41 PM EDT): Pt reports this has improved Slow transit constipation 03/23/2025 Assessment & Plan (03/23/2025 2:59 PM EDT): Notes benefit from senna, taking prn, not going daily without medicine but is noting no pain and increased regularity of bm Referral to gi Dietary counseling 03/23/2025 Assessment & Plan (03/23/2025 2:55 PM EDT): Dietary Recommendations: Fruits, vegetables, whole grains, protein foods, and fat-free or low-fat dairy products are healthy choices. Eat different types of protein foods in your diet. This can include seafood, lean meats, poultry, beans, peas, lentils, nuts, seeds, soy products, and eggs. Limit foods and beverages higher in added sugars, saturated fat, and sodium. Exercise Recommendations: At least 150 minutes of moderate-intensity physical activity per week, or an equivalent combination of moderate- and vigorous-intensity activity Exercise counseling 03/23/2025 Vision loss night 03/23/2025 Thoracic back pain 03/23/2025 Assessment & Plan (03/23/2025 3:08 PM EDT): Diffuse msks pain no focal bony tenderness Pt to stretch at home And continue walking If no imrpovement within 4-6 weeks or worsening pain, Return to clinic for thoracic films and pt referral Left lower quadrant pain 02/26/2025 Assessment & Plan (02/26/2025 2:19 PM EDT): Pt with left lower qudarant pain, Reassuring abdominal exam no rebound or guarding but does have some tenderness Baseline constipation, Encouraged miralax Beta hcg ordered (pt cannot provide urine) Ultrasound ordered for possible ovarian cyst, Pt and mother aware of rn transitional services and urgency of seeking care should pain increase Migraine with aura and witho ut status migrainosus, not intractable 02/26/2025 Assessment & Plan (02/26/2025 2:23 PM EDT): Trial nadeem, pt endorses light sensitivity Cyst of left ovary 10/21/2024 Other chronic pain 10/21/2024 Nausea 09/01/2024 Assessment & Plan (09/01/2024 5:24 PM EDT): H pylori test ordered Will treat with famotidine and prn zofran, encouraged eating q 2-3 hours Unintentional weight loss 09/01/2024 Assessment & Plan [...] albuterol inhaler for sensation of chest tightness Lower abdominal pain 05/22/2024 Assessment & Plan (06/17/2025 4:41 PM EDT): Reviewed increasing fiber and activity Encouraged to schedule with regional clinical research associate and GI Assessment & Plan (05/22/2024 1:03 PM EDT): Reassuring abdominal exam, encouraged fiber and hydration, if pain persists or worsens imaging warranted Allergies 04/10/2024 Assessment & Plan (04/30/2024 3:21 PM EDT): Seasonal allergies topical nasal steroid and antihistamine rx Anemia 04/10/2024 Assessment & Plan (04/30/2024 3:20 PM EDT): Asymptomatic, trend labs Fatigue due to exposure 04/10/2024 Dysmenorrhea 04/10/2024 Assessment & Plan (09/01/2024 5:23 PM EDT): Pt interested in second opinion regarding etiology, Referral to [facility] at [facility], Ultrasound ordered as pt endorses sig llq [...] ibuprofen beneficial hormonal options offered pt declines, regional clinical research associate referral pending Assessment & Plan (04/30/2024 3:20 PM EDT): Pt opts to trial ibuprofen, referral to regional clinical research associate for further work up /management per pt request Ingrown toenail of left foot 04/10/2024 Assessment & Plan (04/30/2024 3:20 PM EDT): Referral to podiatry Panic attacks 04/10/2024 Assessment & Plan (05/25/2024 [...] concern, and recent move. Jasper moved to [place] from [place] on 12/2023. She's currently living with her mom and identifies her housing and financial situation as triggers for sxs. Used to see a therapist and psychiatrist in [place]. Aware of importance of utilizing grounding techniques. During today's consult, Jasper was engaged with active and reflective listening. Reviewed and assessed risks, current triggers, protective factors using open-ended questions. We explored different grounding techniques that might be important to utilize when symptoms arise. Jasper will continue to see her therapist at [facility] and request to talk with clinician if needed during next medical visits. PLAN: (check all that apply) Continue with current services (defined as services in the past 12 months) . Pt reached out to [facility] / [facility] and has started OP individual therapy. Pt reports she has completed her second session with [facility]. Not interested in starting medication at the moment. Will continue to see therapist at [facility] and request to see clinician if needed [...] concern, and recent move. Jasper moved to [place] from [place] on 12/2023. She's currently living with her mom and identifies her housing situation as a trigger for sxs. Used to see a therapist and psychiatrist in [place]. Aware of importance of utilizing grounding techniques [...] concern, and recent move. Jasper moved to [place] from [place] on 12/2023. She's currently living with her mom and identifies her housing situation as a trigger for sxs. Used to see a therapist and psychiatrist in [place]. Aware of importance of utilizing grounding techniques [...] concern, and recent move. Jasper moved to [place] from [place] on 12/2023. She's currently living with her mom and identifies her housing situation as a trigger for sxs. Used to see a therapist and psychiatrist in [place]. Aware of importance of utilizing grounding techniques and open to re-start medication to treat anxiety. PLAN: (check all that apply) Behavioral Health Integration Plan Self-referred to [facility] per patient's preferences. Information provided for [facility] and [facility] intake. Attention deficit hyperactivity disorder 017 Fibrous dysplasia of bone 08/30/2017 Assessment & Plan (09/01/2024 5:24 PM EDT): Pt prefers to outreach to [facility] for rehab medicine for ortho recommendations at this time, will [...] Mild intermittent asthma 08/30/2017 Assessment & Plan (03/23/2025 3:00 PM EDT): Allergies are trigger, but now with albuterol every other day, and is reducing Assessment & Plan (11/09/2024 4:06 PM EST): Not an acute exacerbation. Advised to use albuterol tid and up to 4x/d prn sob/cough for the next 5d. 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 [...] 72 hours (temperature should be less than 100 F without medication). Encounters Date Type Department Care Team Description 08/06/2025 9:45 AM EDT Office Visit [facility] [address] [place] [address] Alma Donaldson NP Chronic idiopathic constipation (Primary Dx); Coccyx pain 08/06/2025 Travel 08/05/2025 Telephone [facility] [address] [place] [address] Alma Donaldson NP Nurse Triage 07/29/2025 2:00 PM EDT Office Visit [facility] [address] [place] [address] Neal, Julieta, OD Normal eye exam (Primary Dx); Myopia of both eyes 07/29/2025 Travel 07/22/2025 Travel 06/25/2025 3:00 PM EDT Office Visit [facility] [address] [place] [address] Stephanie Talley MD Throat pain; Viral upper respiratory tract infection 06/25/2025 Travel 06/21/2025 Telephone [facility] [address], [place] [phone] Alma Donaldson NP Letter for School/Work 06/20/2025 Orders Only GENERIC EXTERNAL DATA DEPARTMENT Provider, Generic External Data 05/27/2025 Refill [facility] [address] [place] [address] Alma Donaldson NP Nausea 05/18/2025 2:30 PM EDT Office Visit [facility] [address] [place] [address] Alma Donaldson NP Left lower quadrant pain (Primary Dx); Moderate tetrahydrocannabinol (THC) dependence (CMS/HCC); Polyostotic fibrous dysplasia of bone; Lower abdominal pain 05/18/2025 Travel 05/17/2025 Telephone [facility] [address] [place] [address] Alma Donaldson NP Chart Prep from Last 3 Months Immunizations Immunization Administration Dates Next Due DTaP 01/13/2010, 7,07/08/2006,05/07,03/05/2006 [...] Mass Index 32.04 08/06/2025 9:51 AM EDT Plan of Treatment Health Maintenance Due Date Last Done Comments Hepatitis A Vaccines (2 of 2 - 2-dose series) 12/23/2007 06/22/2007, 01/02/2007 Pneumococcal Vaccine: Pediatrics (0 to 5 Years) and At-Risk Patients (6 to 49) Years (1 of 1 - PPSV23) 2011 04/09/2007, 07/08/2006, 05/07/2006, Additional history exists Family Planning (PISQ) 2020 Meningococcal B Vaccine (1 of 2 - Standard) 2021 Dental X-Ray: Full Mouth 08/29/2022 08/28/2019 Dental Oral Exam 10/09/2024 04/07/2024, 06/2022, 03/02/2021, Additional history exists Dental Prophylaxis 10/09/2024 04/07/2024, 0 05/25/2022, 03/02/2021, Additional history exists Dental X-Ray: Bitewings 04/08/2025 04/07/20 24, 05/25/2022, 03/02/2021, Additional history exists COVID-19 Vaccine ( season) 2025 03/02/2022, 04/28/2021, 04/07/2021 Influenza Vaccine (#1) 2025 , 08/05/2019, 08/08/2018, Additional history exists Chlamydia and Gonorrhea Screening 10/12/2025 10/12/2024, 05/22/2024 Depression Monitoring 11/18/2025 05/18/2025, 025 Disability Screening 03/23/2026 03/23/2025 SDOH Screening 03/23/2026 03/23/2025 Alcohol/Substance Use Screening 05/18/2026 05/18/2025 Tobacco Screening 08/06/2026 08/06/2025 DTaP/Tdap/Td Vaccines (7 - Td or Tdap) [...] Procedure Name Priority Date/Time Associated Diagnosis Comments POC ALATORRE ID NOW STREP A Routine 06/25/2025 3:33 PM EDT Throat pain POCT COVID-19 AG ALATORRE ID NOW Routine 06/25/2025 3:32 PM EDT Throat pain SARS COV2/INFLUENZA A/B AND RSV RNA QL NAAT Routine 06/20/2025 9:25 PM EDT STREP A NUCLEIC ACID Routine 06/20/2025 9:25 PM EDT CHLAMYDIA/N. GONORRHOEAE RNA, TMA, UROGENITAL Routine 10/12/2024 [...] Recently Relevant to Health Maintenance Results * POCT Rapid Strep A ALATORRE ID NOW (06/25/2025 3:33 PM EDT) [facility] Rapid Strep A Screen Negative Negative, None Detected QC Media Lot # [id number] Lot# Expiration Date ,026 Swab 06/25/2025 3:33 PM EDT Stephanie Leung MD POINT OF CARE TEST EN TER/EDIT ORDERABLES Final Result * POCT Rapid Covid-19 ALATORRE ID NOW (06/25/2025 3:32 PM EDT) [facility] Coronavirus Antigen PCR Negative Negative, Indeterminate, None Detected, Invalid, Specimen unsatisfactory for evaluation, Weakly Positive, 2+ QC Media Lot # [id number] Lot# Expiration Date ,026 Swab 06/25/2025 3:32 PM EDT Stephanie Leung MD POINT OF CARE TEST EN TER/EDIT ORDERABLES Final Result * Strep A Nucleic Acid (06/20/2025 9:25 PM EDT) IDNOW SERIAL# [id number] [facility] Strep A Nucleic Acid Negative Negative [facility] Comment:All test results mus t be correlated with clinical findings.This test has not been evaluated for monitoring treatment ofinfection.Additional follow-up testing using the culture method isrequired if the result is negative and clinical symptomspersist, or in the event of an acute rheumatic feveroutbreak. 06/20/2025 9:25 PM EDT 06/20/2025 9:34 PM EDT us Generic External Data Provider LAB MICROBIOLOGY - GENERAL ORDERABLES Final Result [facility] [address] [place] [phone] [phone] * SARS-CoV-2 RNA, Influenza A/B, and RSV RNA, Ql NAAT (06/20/2025 9:25 PM EDT) Influenza A PCR NEGATIVE Negative [facility] Influenza B PCR NEGATIVE Negative [facility] Resp Syncy Virus RNA Qual PCR NEGATIVE Negative [facility] SARS COV2 PCR NEGATIVE Negative [facility] Comment:All test results mus t be correlated with clinical findings.Negative results do not preclude SARS-CoV2, influenza Avirus, influenza B virus and/or RSV infectionand should not be used as the sole basis for treatment orother patient management decisions. Negative results must becombined with clinical observations, patient history, andepidemiological information.This test has not been evaluated for monitoring treatment ofinfection.This test has been authorized by the FDA under an EmergencyUse Authorization (EUA) for use by authorized laboratories.Testing performed on the [employer] GeneXpert utilizingreal-time RT-PCR.All SARS CoV2 and positive influenza A/B results arereported to [facility]. 06/20/2025 9:25 PM EDT 06/20/2025 9:34 PM EDT us Generic External Data Provider LAB MICROBIOLOGY - GENERAL ORDERABLES Final Result [facility] [address] [place] [phone] * Chlamydia/N. Gonorrhoeae RNA, TMA, Vagina (10/12/2024 4:21 PM EST) CT PCR NOT DETECTED Not Detect. [facility] Comment:A not detected test result does [...] psychologicalconsequences. NG PCR NOT DETECTED Not Detect. [facility] Comment:A not detected test result does [...] PM EST 10/13/2024 12:52 PM EST Narrative [facility] - 10/13/2024 4:11 PM EST Vaginal Ivet Guevara MD LAB MICROBIOLOGY - GENERA L ORDERABLES Final Result Performing Organization Address City/[facility]/ZIP Co de Phone Number [facility] [address] [place] [phone] * HIV-1/1 Ag/Ab (10/12/2024 12:00 AM EST) HIV AB/AG Nonreactive Nonreactive [facility] Comment:HIV-1 p24 Ag and/or HIV-1/HIV-2 Ab not detected.A test result that is nonreactive does not exclude thepossibility of exposure to or infection with HIV-1 and/orHIV-2. Nonreactive results in this assay for individualswith prior exposure to HIV-1 and/or HIV-2 may be due toantigen and antibody levels that are below the limit ofdetection of this assay.The [employer] HIV Ag/Ab Combo assay result andsupplemental assay results should be interpreted inconjunction with the patient's clinical presentation,history and other laboratory results. If the results areinconsistent with clinical evidence, additional testing issuggested to confirm the result. Blood Venous blood specimen / Unknown 10/12/2024 10/12/2024 Ivet Guevara MD LAB BLOOD ORDERABLES Cee l Result Performing Organization Address City/[facility]/ZIP Co de Phone Number [facility] [address] [place] [phone] * Hepatitis C Antibody with Reflex to HCV, RNA, Quantitative, Real-Time PCR (04/10/2024 3:17 PM EDT) Hepatitis C Antibody Nonreactive Nonreactive [facility] Comment:Antibodies to HCV no t detected; does not exclude early acuteHCV infection. Blood Venous blood specimen / Unknown 04/10/2024 3:17 PM EDT 04/10/2024 6:02 PM EDT Alma Donaldson POT FIRER LAB BLOOD ORDERABLES Final Resul t [facility] [address] [place] [address] [phone] from Last 3 Months or Most Recently Relevant to Health Maintenance Insurance [facility] C3 DENTAL-[facility] MEDICAID STAND CHILD Care Teams Pigment Pumper Relationship Specialty Start Date End Date Alma Donaldson NP [address] [place] [phone] PCP - General Family Medicine 02/27/24
--- OUTSIDE RECORDS SUMMARY | 2025-08-06 10:49 | XMS_ITS | Encounter Summary ---
Author Organization [employer] Address [address] [facility] [address] [place] [address] Care Team Providers Care Rail Operator Name Role Phone Alma Donaldson NP Primary Care Provider [phone] Encounter Details Date Type Department Care Team (Late st Contact Info) Description 04/10/2024 Orders Only [facility] [address] [place] [address] Ivet Li MD [address] [place], [place] [phone] Community acquired pneumonia, unspecified laterality (Primary Dx) [...] with others, in a hotel, in a senior care, living outside on the street, on a [...] as of this encounter Plan of Treatment Not on file documented as of this encounter Procedures Procedure [...] (09/03/2024 2:51 AM EDT) Color Urine Yellow [facility] Appearance Urine Clear [facility] PH 6.5 5.0 - 9.0 [facility] Glucose Urine UA Negative Negative mg/dL [facility] Urine Blood Negative Negative [facility] Specific [place] - Urine <=1.005 1.005 - 1.025 [facility] Urine Protein Negative Neg-Trace mg/dL [facility] Urine Ketones Negative Negative mg/dL [facility] Nitrite Urine Negative Negative [facility] Leukocyte Esterase Urine Negative Negative [facility] RBC Urine 0-2 0 - 2 /HPF [facility] Urine WBC 0-5 0 - 5 /HPF [facility] Urine Squamous Epithelial Cell 0-2 0 - 2 /HPF [facility] Urine Bacteria None Seen None Seen [facility] Hyaline Casts, Urine 0-2 0 - 2 /LPF [facility] 09/03/2024 2:51 AM EDT 09/03/2024 2:55 AM EDT Narrative [facility] - 09/03/2024 3:01 AM EDT Urine, Clean Catch us Generic External Data Provider LAB URINE ORDERAB LES Final Result [facility] [address] [place], [place] [phone] * hCG, Total, Quantitative (09/03/2024 12:43 AM EDT) HCG Quantitative <2 mIU/mL [facility] Comment:Weeks post LMP Appro ximate hCG(Last Menstrual Period) Range (mIU/ml)3 - 4 weeks 9 - 1304 - 5 weeks 75 - 2,6005 - 6 weeks 850 - 20,8006 - 7 weeks 4000 - 100,2007 - 12 weeks 11,500 - 289,[phone] - 16 weeks 18,300 - 137,69449 - 29 weeks (2nd trimester) 1,400 - 53,56452 - 41 weeks (3rd trimester) 940 - [...] Provider LAB BLOOD ORDERAB LES Final Result [facility] [address] [place] [address] [phone] * (ABNORMAL) Comprehensive Metabolic Panel (09/03/2024 12:43 AM EDT) Sodium 139 135 - 145 mmol/L [facility] Potassium 3.8 3.3 - 5.1 mmol/L [facility] Chloride 107 96 - 108 mmol/L [facility] Carbon Dioxide 25 22 - 29 mmol/L [facility] Anion Gap 11(L) 12 - 20 [facility] Urea Nitrogen (BUN) 12 9 - 16 mg/dL [facility] Creatinine, Serum 0.72 0.5 - 1.4 mg/dL [facility] Creatinine Clr Calc Pharmacy TNP [facility] Comment:Cannot be calculated ; patient is less than 19 years old. Estimated Glomerular Filt Rate >60 [facility] Comment:NOTE: For -Am erican individuals, multiply the result by 1.210.Chronic Kidney Disease: Estimated GFR < 60 mL/min/[id number] Kidney Disease: Estimated GFR < 15 mL/min/1.73m2 Glucose 89 60 - 115 mg/dL [facility] Calcium 9.8 8.4 - 10.2 mg/dL [facility] Bilirubin, Total 0.3 0.0 - 1.0 mg/dL [facility] Aspartate Amino Transferase 16 5 - 31 U/L [facility] Alanine Aminotransferase 13 0 - 31 U/L [facility] Total Protein 7.5 6.5 - 8.0 g/dL [facility] Albumin Level 4.5 3.5 - 5.0 g/dL [facility] Alkaline Phosphatase 92 39 - 117 U/L [facility] 09/03/2024 12:4 3 AM EDT 09/03/2024 12:45 AM EDT us Generic External Data Provider LAB BLOOD ORDERAB LES Final Result [facility] [address] [place] [address] [phone] * (ABNORMAL) CBC auto differential (09/03/2024 12:43 AM EDT) White Blood Count 9.7 4.8 - 10.8 X10*3/uL [facility] Red Blood Count 4.40 4.20 - 5.50 X10*6/uL [facility] Hemoglobin 13.3 12.0 - 16.0 g/dl [facility] Hematocrit 38.4 37.0 - 47.0 % [facility] Mean Corpuscular Volume 87.3 80.0 - 98.0 fL [facility] Mean Corpuscular Hemoglobin 30.2 27.0 - 33.0 pg [facility] Mean Corpuscular HGB Conc 34.6 31.0 - 35.0 g/dl [facility] Red Cell Distribution Width 12.5 11.0 - 16.0 % [facility] Platelet Count 377 160 - 400 X10*3/uL [facility] Mean Platelet Volume 8.9(L) 9.4 - 12.3 fL [facility] Neutrophils Percent Auto 54.7 45 - 73 % [facility] Imm Gran Pct Auto 0.4 0.0 - 0.4 % [facility] Lymphocytes Percent Auto 36.7 20 - 40 % [facility] Monocytes Percent Auto 5.8 2 - 11 % [facility] Eosinophils Percent Auto 2.0 0 - 4 % [facility] Basophils Percent Auto 0.4 0 - 2 % [facility] NRBC Pct Auto 0.0 0.0 - 0.2 /100WBC [facility] Neutrophils Absolute Auto 5.3 2.0 - 8.3 x10*3/uL [facility] Imm Gran Abs Auto 0.04(H) 0.00 - 0.03 X10*3/uL [facility] Lymphocytes Absolute Auto 3.6 1.2 - 4.9 X10*3/uL [facility] Monocytes Absolute Auto 0.6 0.1 - 1.2 X10*3/uL [facility] Eosinophils Absolute Auto 0.2 0.0 - 0.4 X10*3/uL [facility] Basophils Absolute Auto 0.0 0.0 - 0.2 X10*3/uL [facility] NRBC Abs Auto 0.000 0.0 - 0.012 X10*3/uL [facility] 09/03/2024 12:4 3 AM EDT 09/03/2024 12:45 AM EDT us Generic External Data Provider LAB BLOOD ORDERAB LES Final Result [facility] [address] [place] [address] [phone] documented in this encounter Visit Diagnoses Diagnosis Community acquired pneumonia, unspecified laterality- Primary documented in this encounter Additional Health Concerns Assessment Noted Time PHQ-9 Depression Total Score: 21 024 9:17 AM EDT documented as of this encounter Care Teams Rail Operator Relationship Specialty Start Date End Date Alma Donaldson NP [address] [place] [phone] PCP - General Family Medicine 02/27/24 documented as of this encounter
--- OUTSIDE RECORDS SUMMARY | 2025-08-06 10:49 | XMS_ITS | Encounter Summary ---
Author Organization [employer] Address [address] [facility] [address] [place] [address] Care Team Providers Care Hairspring Vibrator Name Role Phone Alma Donaldson NP Primary Care Provider [phone] Encounter Details Date Type Department Care Team (Latest Contact Info) Description 08/06/2025 Travel Social History Tobacco Use Types Packs/Day Years Used Date Smoking Tobacco: Never Passive Smoke Exposure: Never Alcohol Use Standard Drinks/Week Comments Never [...] on file documented as of this encounter Visit Diagnoses Not on filedocumented in this encounter Additional Health Concerns Assessment Noted Time PHQ-9 Depression Total Score: 18 025 3:29 PM EDT documented as of this encounter Care Teams Hairspring Vibrator Relationship Specialty Start Date End Date Alma Donaldson NP [address] [place] [address] PCP - General Family Medicine 02/27/24 documented as of this encounter
--- OUTSIDE RECORDS SUMMARY | 2025-08-06 10:49 | XMS_ITS | Clinical Summary ---
Demographics Address [address] [place] [address] Mobile Phone Home Phone Phone Email Address Preferred Language es/en Marital Status Single Amish Affiliation Unknown Race Other Race Ethnic Group Unknown Author Organization Address [address] [place] [address] Care Team Providers Care Supervisor Fishing Name Role Phone Hailey Molina MD Primary Care Provider [phone] Allergies Active Allergy Reactions Criticality Noted Date [...] concern, and recent move. Jasper moved to [place] from [place] on 12/2023. She's currently living with her mom and identifies her housing and financial situation as triggers for sxs. Used to see a therapist and psychiatrist in [place]. Aware of importance of utilizing grounding techniques. During today's consult, Jasper was engaged with active and reflective listening. Reviewed and assessed risks, current triggers, protective factors using open-ended questions. We explored different grounding techniques that might be important to utilize when symptoms arise. Jasper will continue to see her therapist at [facility] and request to talk with clinician if needed during next medical visits. PLAN: (check all that apply) Continue with current services (defined as services in the past 12 months) . Pt reached out to [facility] / [facility] and has started OP individual therapy. Pt reports she has completed her second session with [facility]. Not interested in starting medication at the moment. Will continue to see therapist at [facility] and request to see clinician [...] concern, and recent move. Jasper moved to [place] from [place] on 12/2023. She's currently living with her mom and identifies her housing situation as a trigger for sxs. Used to see a therapist and psychiatrist in [place]. Aware of importance of utilizing grounding techniques and open to re-start medication to treat anxiety. PLAN: (check all that apply) Behavioral Health Integration Plan Self-referred to [facility] per patient's preferences. Information provided for [facility] and [facility] intake. Attention deficit hyperactivity disorder 017 Polyostotic [...] ibuprofen beneficial hormonal options offered pt declines, licensed embalmer referral pending Social History Tobacco Use Types [...] 96.58% 10/21 10:48 AM EST Growth Chart: [facility] (Girls, 2- 20 Years) Plan of Treatment Not on file Insurance * Guarantor: Jasper Simental Account Type Relation to Patient Date of Phone Billing Address Personal/Family Self 2005 [address] [place] [address] MEDICAID OF [facility] * Guarantor: KAVIN NIXON Account Type Relation to Patient Date of Phone Billing Address Personal/Family Mother [address] [place] [id number] Care Teams Supervisor Fishing Relationship Specialty Start Date End Date Hailey Molina MD [address] [place] [address] [place] [phone] PCP - General 04/24/22
--- OUTSIDE RECORDS SUMMARY | 2025-08-06 10:49 | XMS_ITS | Encounter Summary ---
Author Organization [employer] Address [address] [place] [address] Care Team Providers Care Survey Technician Name Role Phone Alma Donaldson NP Primary Care Provider [phone] Reason for Visit * Reason Onset Date Comments Nurse Triage 08/05/2025 Encounter Details Date Type Department Care Team (Late st Contact Info) Description 08/05/2025 Telephone [facility] [address] [place], [place] [phone] Alma Donaldson NP [address] [place] [address] Nurse Triage Social History Tobacco Use Types Packs/Day Years [...] PM EDT documented as of this encounter Miscellaneous Notes * Telephone Encounter - Korina Montilla RN - 08/05/2025 10:13 AM EDT Called pt. She states that she has been having bad low back pain x 2 weeks. Pt. Denies any thoughtsof injury. Pt. Does have HX. Of constipation. No pain with urination. Pain with sitting or standingup. No pain traveling down legs. No fever. No blood in urine or stool. Protocol Used: Back Pain (Adult) Protocol-Based Disposition: See in Office or Video Visit within 3 Days-appt. 08/06/25 at 945am on Blue team with PCP. Video visit offer not recorded Positive Triage Questions: * Moderate back pain (e.g., interferes with normal activities) and present > 3 days * Patient wants to be seen * All higher-acuity triage questions were negative Care Advice Discussed: * Cold or Heat * Sleep * Continue Activity * Pain Medicines * Telephone Encounter - Braxton Masterson - 08/05/2025 8:51 AM EDT Symptom: Back Pain - Not From Injury Outcome: Schedule an appointment to be seen within 3 days Reason: Caller denied all higher acuity questions The caller accepted this outcome. Contact pt at [phone] documented in this encounter Plan of Treatment Not on file documented as of this encounter Visit Diagnoses Not on filedocumented in this encounter Additional Health Concerns Assessment Noted Time PHQ-9 Depression Total Score: 18 025 3:29 PM EDT documented as of this encounter Care Teams Survey Technician Relationship Specialty Start Date End Date Alma Donaldson NP [address] [place] [address] PCP - General Family Medicine 02/27/24 documented as of this encounter
== END 2025-08-06 10:14 | disposition home or self-care (01) ==
LOC: HO.HHCX 10:13
PROVIDERS: PCP Nurse Practitioner Family; Visit Provider Nurse Practitioner Family
DX: M53.3 Sacrococcygeal disorders, not elsewhere classified (principal)
CPT/HCPCS: 72220

== ENCOUNTER → 2025-08-06 10:18 | Outpatient (BNV) | payer MEDICAID, SELFPAY | PROVIDERS: PCP Nurse Practitioner Family; Visit Provider Radiology Diagnostic Radiology | DX: M53.3 Sacrococcygeal disorders, not elsewhere classified (principal) | CPT/HCPCS: 72220 ==